=== PATIENT | male | born 1940 | race Caucasian/White ===

== ENCOUNTER 2016-11-15 17:23 | Observation (INO) | payer MEDICARE, MEDICAID ==
[~2016-11-15] VITALS: Ht 157.5 cm; Wt 83.6 kg
[~2016-11-15 17:23] MED LIST: Aspirin PO; BRIN8DRO BOTHEYE; FLUT1DIS3 ORI; FURO40TA5 PO; LISI10TA5 PO; RIVA20TA PO; TRAV2.5D EACHEYE
[2016-11-15] MEDS ORDERED: NITROGLYCERIN OINT 1GM/INCH UDPKT TD ONE (17:45)
[2016-11-15 18:10] LABS: BASOPHILS % 0.4 % (0.0-2.0); EOSINOPHILS % 2.8 % (0.0-5.0); HEMATOCRIT. 37.9 % (42.0-52.0); HEMOGLOBIN. 12.6 g/dL (14.0-18.0); LYMPHOCYTES % 24.7 % (20.0-50.0); MEAN CORPUSCULAR HEMOGLOBIN 32.1 pg (28.0-32.0); MEAN CORPUSCULAR HGB CONC 33.2 g/dL (31.0-37.0); MEAN CORPUSCULAR VOLUME 96.7 fL (80.0-94.0); MONOCYTES % 9.5 % (2.0-8.0); NEUTROPHILS % 62.6 % (40.0-76.0); PLATELET 109 x1000/uL (130-400); RED BLOOD CELL COUNT 3.93 mill/uL (4.7-6.1); RED CELL DISTRIBUTION WIDTH 13.4 % (11.6-14.6); WHITE BLOOD COUNT 6.9 x1000/uL (4.5-11.0)
[2016-11-15 18:17] LABS: INR 1.5; PROTHROMBIN TIME 15.1 sec
[2016-11-15 18:24] LABS: ALANINE AMINOTRANSFERASE 21 IU/L (13-61); ALBUMIN 3.8 g/dL (3.4-5.0); ANION GAP 12; CALCIUM 9.1 mg/dL (8.5-10.1); CARBON DIOXIDE 28 mEq/L (21-32); CHLORIDE 107 mEq/L (98-107); INDEX HEMOLYSI 1 (1-3); INDEX ICTERIC 1 (1-4); INDEX LIPEMIC 1 (1-3); LIPASE 613 IU/L (73-393); UREA NITROGEN BLOOD 24 mg/dL (7-21); eGFR > 60 mL/min (>60)
[2016-11-15 18:26] LABS: NT PRO B-TYPE NATRIURETIC PEP 1101 pg/mL (5-125); TROPONIN I 0.02 ng/mL (0.00-0.04)
[2016-11-15 22:35] VITALS: BP 153/86
[2016-11-16] VITALS: BP 153/86
[2016-11-16] MEDS ORDERED: DEXTROSE 50% WATER 50ML SYRINGE IV PRN (00:45)
[2016-11-16] MEDS ORDERED: MORPHINE SULFATE 2 MG/ML CPJ (NOT FOR IM USE) IV PRN (00:45)
[2016-11-16] MEDS ORDERED: SITA100T6 PO (01:00)
[2016-11-16] MEDS ORDERED: INSU3INS6 SUBCUT (01:00)
[2016-11-16] MEDS ORDERED: METF750T2 PO (01:00)
[2016-11-16] MEDS ORDERED: CARV12.545 PO (01:00)
[2016-11-16] MEDS ORDERED: TAMS0.4C31 PO (01:00)
[2016-11-16] MEDS ORDERED: DIGO125T82 PO (01:00)
[2016-11-16] MEDS ORDERED: SIMV40TA5 PO (01:00)
[2016-11-16] MEDS ORDERED: WARF2.5T47 PO (01:00)
[2016-11-16 04:00] VITALS: BP 111/63
[2016-11-16] MEDS: BLOOD SUGAR DIAGNOSTIC STRIP TEST SCH ×4 (07:22→20:51)
[2016-11-16] MEDS: INSULIN LISPRO 100 UNITS/ML SUBCUT SCH ×4 (07:22→20:51)
[2016-11-16 08:00] VITALS: BP 114/65
[2016-11-16] MEDS: ENOXAPARIN 40MG/0.4ML SYR SUBCUT SCH (09:00)
[2016-11-16 09:18] LABS: ANION GAP 10; CALCIUM 8.7 mg/dL (8.5-10.1); CARBON DIOXIDE 29 mEq/L (21-32); CHLORIDE 108 mEq/L (98-107); HDL CHOLESTEROL 35 mg/dL (40-59); INDEX HEMOLYSI 1 (1-3); INDEX ICTERIC 1 (1-4); INDEX LIPEMIC 1 (1-3); LDL CHOLESTEROL 50 mg/dL (5-100); TRIGLYCERIDE 71 mg/dL (0-150); TROPONIN I 0.02 ng/mL (0.00-0.04); UREA NITROGEN BLOOD 24 mg/dL (7-21); eGFR > 60 mL/min (>60)
[2016-11-16] MEDS: PANTOPRAZOLE 40MG DR TABLET PO SCH (09:18)
[2016-11-16] MEDS: FUROSEMIDE 40MG/4ML VIAL IVP SCH (09:18)
[2016-11-16] MEDS: CARVEDILOL 6.25 MG TABLET PO SCH ×2 (09:19→20:51)
[2016-11-16] MEDS: TIMOLOL MALEATE 0.5% OPHTH DROPS 5ML OP SCH (09:20)
[2016-11-16] MEDS: BRIMONIDINE 0.2% OPHTH DROPS 5ML BOTHEYE SCH (09:20)
[2016-11-16 12:00] VITALS: BP 122/63
[2016-11-16 16:00] VITALS: BP 148/84
[2016-11-16] MEDS ORDERED: WARFARIN SODIUM 2.5MG TABLET PO SCH (18:00)
[2016-11-16 20:00] VITALS: BP 151/85
[2016-11-16] MEDS ORDERED: ATORVASTATIN CALCIUM 40MG TABLET PO SCH (21:00)
[2016-11-16] MEDS ORDERED: LATANOPROST 0.005% OPHTH DROPS 2.5ML OP SCH (21:00)
[2016-11-17] VITALS: BP 117/69
[2016-11-17 04:00] VITALS: BP 122/63
[2016-11-17 06:22] LABS: D-DIMER 0.46 mg/L FEU (<0.50); INR 1.5; PROTHROMBIN TIME 15.2 sec
[2016-11-17 06:39] LABS: BASOPHILS % 0.5 % (0.0-2.0); EOSINOPHILS % 3.1 % (0.0-5.0); HEMATOCRIT. 38.2 % (42.0-52.0); HEMOGLOBIN. 12.8 g/dL (14.0-18.0); LYMPHOCYTES % 29.9 % (20.0-50.0); MEAN CORPUSCULAR HEMOGLOBIN 32.3 pg (28.0-32.0); MEAN CORPUSCULAR HGB CONC 33.6 g/dL (31.0-37.0); MEAN CORPUSCULAR VOLUME 96.4 fL (80.0-94.0); MEAN PLATELET VOLUME 9.5 fl (7.4-10.4); MONOCYTES % 10.8 % (2.0-8.0); NEUTROPHILS % 55.7 % (40.0-76.0); PLATELET 110 x1000/uL (130-400); RED BLOOD CELL COUNT 3.96 mill/uL (4.7-6.1); RED CELL DISTRIBUTION WIDTH 13.4 % (11.6-14.6); WHITE BLOOD COUNT 6.6 x1000/uL (4.5-11.0)
[2016-11-17] MEDS: BLOOD SUGAR DIAGNOSTIC STRIP TEST SCH ×2 (06:42→12:56)
[2016-11-17 07:01] LABS: ALANINE AMINOTRANSFERASE 21 IU/L (13-61); ALBUMIN 3.4 g/dL (3.4-5.0); ANION GAP 12; CALCIUM 9.1 mg/dL (8.5-10.1); CARBON DIOXIDE 29 mEq/L (21-32); CHLORIDE 105 mEq/L (98-107); INDEX HEMOLYSI 2 (1-3); INDEX ICTERIC 1 (1-4); INDEX LIPEMIC 1 (1-3); LDL CHOLESTEROL 68 mg/dL (5-100); MAGNESIUM 2.1 mg/dL (1.8-2.4); TRIGLYCERIDE 81 mg/dL (0-150); UREA NITROGEN BLOOD 23 mg/dL (7-21); eGFR > 60 mL/min (>60)
[2016-11-17 07:02] LABS: HDL CHOLESTEROL 36 mg/dL (40-59); TROPONIN I 0.02 ng/mL (0.00-0.04)
[2016-11-17 08:00] VITALS: BP 114/75
[2016-11-17] MEDS: ENOXAPARIN 40MG/0.4ML SYR SUBCUT SCH (08:29)
[2016-11-17] MEDS: FUROSEMIDE 40MG/4ML VIAL IVP SCH (08:29)
[2016-11-17] MEDS: PANTOPRAZOLE 40MG DR TABLET PO SCH (08:29)
[2016-11-17] MEDS: CARVEDILOL 6.25 MG TABLET PO SCH (08:32)
[2016-11-17] MEDS: TIMOLOL MALEATE 0.5% OPHTH DROPS 5ML OP SCH (08:32)
[2016-11-17] MEDS: BRIMONIDINE 0.2% OPHTH DROPS 5ML BOTHEYE SCH (08:32)
[2016-11-17] MEDS: INSULIN LISPRO 100 UNITS/ML SUBCUT SCH ×2 (08:34→13:38)
[2016-11-17 12:00] VITALS: BP 103/68
[2016-11-17 13:10] VITALS: BP 103/68
== END 2016-11-17 14:55 | disposition home or self-care (01) ==
LOC: ER 17:24 → 7WST 19:01 → INTOOBSV 19:01
PROVIDERS: ADMIT Internal Medicine; ATTEND Internal Medicine
DX: I11.0 Hypertensive heart disease with heart failure (principal); I50.9 Heart failure, unspecified; E11.9 Type 2 diabetes mellitus without complications; E78.00 Pure hypercholesterolemia, unspecified; E78.5 Hyperlipidemia, unspecified; I25.10 Atherosclerotic heart disease of native coronary artery without angina pectoris; I34.0 Nonrheumatic mitral (valve) insufficiency; I48.2 Chronic atrial fibrillation; I42.0 Dilated cardiomyopathy; K21.9 Gastro-esophageal reflux disease without esophagitis; N28.9 Disorder of kidney and ureter, unspecified; J44.9 Chronic obstructive pulmonary disease, unspecified; N40.0 Benign prostatic hyperplasia without lower urinary tract symptoms; Z87.891 Personal history of nicotine dependence; Z95.1 Presence of aortocoronary bypass graft; Z79.01 Long term (current) use of anticoagulants; Z99.81 Dependence on supplemental oxygen; Z95.0 Presence of cardiac pacemaker
CPT/HCPCS: 36415; 71010; 80048; 80053; 80061; 82962; 83690; 83735; 83880; 84443; 84484; 85025; 85379; 85610; 93005; 93970; 96372; 96374; 96376; 99285; G0378; J1650; J1815; J1940

== ENCOUNTER 2018-07-23 17:43 | Inpatient (IN) | payer MEDICARE, MEDICAID ==
[~2018-07-23] VITALS: Ht 167.6 cm; Wt 84.4 kg
[~2018-07-23 17:43] MED LIST changes: +CARV12.545 PO; +DIGO125T82 PO; +INSU3INS6 SUBCUT; +METF750T2 PO; +SIMV40TA5 PO; +SITA100T11 PO; +TAMS0.4C31 PO; +WARF2.5T47 PO
[2018-07-23] MEDS ORDERED: IPRATROPIUM/ALBUTEROL 0.5-3(2.5)MG/3ML NEB HHN ONE (18:30)
[2018-07-23 19:25] LABS: BASOPHILS % 0.5 % (0.0-2.0); EOSINOPHILS % 1.5 % (0.0-5.0); HEMATOCRIT. 34.6 % (42.0-52.0); HEMOGLOBIN. 11.6 g/dL (14.0-18.0); LYMPHOCYTES % 21.2 % (20.0-50.0); MEAN CORPUSCULAR HEMOGLOBIN 32.9 pg (28.0-32.0); MEAN CORPUSCULAR VOLUME 98.1 fL (80.0-94.0); MEAN PLATELET VOLUME 9.4 fl (7.4-10.4); NEUTROPHILS % 64.8 % (40.0-76.0); PLATELET 154 x1000/uL (130-400); RED BLOOD CELL COUNT 3.52 mill/uL (4.7-6.1); RED CELL DISTRIBUTION WIDTH 13.5 % (11.6-14.6)
[2018-07-23 19:27] LABS: CHLORIDE 107 mEq/L (98-107)
[2018-07-23 19:28] LABS: PROTHROMBIN TIME 29.9 sec (9.1-11.1)
[2018-07-23] MEDS ORDERED: FUROSEMIDE 40MG/4ML VIAL IVP NR (19:45)
[2018-07-23] MEDS ORDERED: ASPIRIN 81MG TABLET PO NR (19:45)
[2018-07-23] MEDS ORDERED: CLONIDINE 0.1MG TABLET PO PRN (21:00)
[2018-07-23] MEDS ORDERED: INSULIN LISPRO 100 UNITS/ML SUBCUT SCH (21:00)
[2018-07-23] MEDS ORDERED: LORAZEPAM 1MG TABLET PO PRN (21:00)
[2018-07-23] MEDS ORDERED: ACETAMINOPHEN 325MG TABLET PO PRN (21:00)
[2018-07-23] MEDS ORDERED: MAGNESIUM/ALUMINUM HYDROXIDE/SIMETHICONE 30ML UDC PO PRN (21:00)
[2018-07-23] MEDS ORDERED: BLOOD SUGAR DIAGNOSTIC STRIP TEST SCH (21:00)
[2018-07-23] MEDS ORDERED: GUAIFENESIN 200MG/10ML SUGAR FREE UDC PO PRN (21:00)
[2018-07-23] MEDS ORDERED: IPRATROPIUM/ALBUTEROL 0.5-3(2.5)MG/3ML NEB INH PRN (21:00)
[2018-07-23] MEDS ORDERED: LISINOPRIL 20MG TABLET PO SCH (21:00)
[2018-07-23] MEDS ORDERED: DEXTROSE 50% WATER 50ML SYRINGE IV PRN (21:00)
[2018-07-23] MEDS ORDERED: FAMOTIDINE 20MG TABLET PO SCH (21:00)
[2018-07-23] MEDS ORDERED: ONDANSETRON HCL 4MG/2ML INJ IV PRN (21:00)
[2018-07-23] MEDS ORDERED: FUROSEMIDE 40MG/4ML VIAL IVP SCH (21:00)
[2018-07-23] MEDS ORDERED: SPIRONOLACTONE 25MG TABLET PO SCH (21:00)
[2018-07-23] MEDS ORDERED: ZOLPIDEM TARTRATE 5MG TABLET PO PRN ×2 (21:00→23:45)
[2018-07-23] MEDS ORDERED: DOCUSATE SODIUM 100MG CAPSULE PO PRN (21:00)
[2018-07-23] MEDS ORDERED: GUAIFENESIN/DM 600MG/30MG ER TAB 12HR PO SCH (21:00)
[2018-07-23] MEDS ORDERED: TRAMADOL 50MG TABLET PO PRN (21:00)
[2018-07-23] MEDS ORDERED: NITROGLYCERIN 0.4MG TABLET SL SL PRN (21:00)
[2018-07-23] MEDS ORDERED: INSULIN GLARGINE UD 100 UNITS/ML SYR SUBCUT SCH (22:00)
[2018-07-23 22:48] LABS: FOLIC ACID (FOLATE) SERUM 12.6 ng/mL (>5.38)
[2018-07-23 23:40] VITALS: BP 155/77
[2018-07-24] VITALS: BP 154/77
[2018-07-24] MEDS ORDERED: INSULIN GLARGINE UD 100 UNITS/ML SYR SUBCUT NR (02:00)
[2018-07-24 03:00] LABS: DIGOXIN 0.6 ng/mL (0.9-2.0)
[2018-07-24 04:00] VITALS: BP 138/73
[2018-07-24] MEDS: INSULIN LISPRO 100 UNITS/ML SUBCUT SCH ×4 (06:00→20:38)
[2018-07-24] MEDS ORDERED: CARVEDILOL 3.125 MG TABLET PO SCH (06:00)
[2018-07-24] MEDS: BLOOD SUGAR DIAGNOSTIC STRIP TEST SCH ×4 (06:00→20:38)
[2018-07-24] MEDS: CARVEDILOL 6.25 MG TABLET PO SCH ×2 (06:04→17:44)
[2018-07-24 08:00] VITALS: BP 143/90
[2018-07-24] MEDS ORDERED: ASPIRIN 325MG EC TABLET PO SCH (09:00)
[2018-07-24] MEDS ORDERED: TAMSULOSIN HCL 0.4MG SR CAPSULE PO SCH (09:00)
[2018-07-24 09:27] LABS: PROTHROMBIN TIME 29.2 sec (9.1-11.1)
[2018-07-24] MEDS: FUROSEMIDE 40MG/4ML VIAL IVP SCH ×2 (09:48→20:26)
[2018-07-24] MEDS: SPIRONOLACTONE 25MG TABLET PO SCH ×2 (09:49→20:36)
[2018-07-24] MEDS: ASPIRIN 325MG EC TABLET PO SCH (09:49)
[2018-07-24] MEDS: FAMOTIDINE 20MG TABLET PO SCH ×2 (09:50→20:27)
[2018-07-24] MEDS: GUAIFENESIN/DM 600MG/30MG ER TAB 12HR PO SCH ×2 (09:50→20:27)
[2018-07-24] MEDS: TAMSULOSIN HCL 0.4MG SR CAPSULE PO SCH (09:50)
[2018-07-24] MEDS: LISINOPRIL 20MG TABLET PO SCH ×2 (09:51→20:35)
[2018-07-24 12:00] VITALS: BP 128/84
[2018-07-24] MEDS ORDERED: TRAMADOL 50MG TABLET PO PRN (12:45)
[2018-07-24] MEDS ORDERED: LORAZEPAM 1MG TABLET PO PRN (12:45)
[2018-07-24] MEDS: DIGOXIN 125MCG TABLET PO SCH (17:44)
[2018-07-24] MEDS ORDERED: DIGOXIN 125MCG TABLET PO SCH (18:00)
[2018-07-24] MEDS ORDERED: WARFARIN SODIUM 2.5MG TABLET PO SCH (18:00)
[2018-07-24 20:00] VITALS: BP 109/54
[2018-07-24] MEDS: ATORVASTATIN CALCIUM 10MG TABLET PO SCH (20:46)
[2018-07-24] MEDS ORDERED: ATORVASTATIN CALCIUM 10MG TABLET PO SCH (21:00)
[2018-07-24] MEDS: INSULIN GLARGINE UD 100 UNITS/ML SYR SUBCUT SCH (21:58)
[2018-07-25] VITALS: BP 108/59
[2018-07-25 04:00] VITALS: BP 114/48
[2018-07-25] MEDS: CARVEDILOL 6.25 MG TABLET PO SCH ×2 (05:06→18:47)
[2018-07-25] MEDS: INSULIN LISPRO 100 UNITS/ML SUBCUT SCH ×4 (05:53→21:00)
[2018-07-25] MEDS: BLOOD SUGAR DIAGNOSTIC STRIP TEST SCH ×4 (05:53→21:26)
[2018-07-25 07:29] LABS: BASOPHILS % 0.4 % (0.0-2.0); HEMATOCRIT. 36.3 % (42.0-52.0); HEMOGLOBIN. 11.9 g/dL (14.0-18.0); LYMPHOCYTES % 23.7 % (20.0-50.0); MEAN CORPUSCULAR HEMOGLOBIN 32.3 pg (28.0-32.0); MEAN CORPUSCULAR VOLUME 98.3 fL (80.0-94.0); MEAN PLATELET VOLUME 9.3 fl (7.4-10.4); MONOCYTES % 12.5 % (2.0-8.0); NEUTROPHILS % 61.4 % (40.0-76.0); PLATELET 163 x1000/uL (130-400); RED BLOOD CELL COUNT 3.69 mill/uL (4.7-6.1); RED CELL DISTRIBUTION WIDTH 13.6 % (11.6-14.6)
[2018-07-25 07:36] LABS: D-DIMER 0.4 mg/L FEU (<0.50); INR 2.9; PROTHROMBIN TIME 28.4 sec (9.1-11.1)
[2018-07-25 08:00] VITALS: BP 134/78
[2018-07-25] MEDS: FUROSEMIDE 40MG/4ML VIAL IVP SCH ×2 (08:34→21:42)
[2018-07-25] MEDS: GUAIFENESIN/DM 600MG/30MG ER TAB 12HR PO SCH ×2 (08:34→21:37)
[2018-07-25] MEDS: SPIRONOLACTONE 25MG TABLET PO SCH ×2 (08:35→21:38)
[2018-07-25] MEDS: FAMOTIDINE 20MG TABLET PO SCH ×2 (08:35→21:38)
[2018-07-25] MEDS: TAMSULOSIN HCL 0.4MG SR CAPSULE PO SCH (08:35)
[2018-07-25] MEDS: ASPIRIN 325MG EC TABLET PO SCH (08:36)
[2018-07-25] MEDS: LISINOPRIL 20MG TABLET PO SCH ×2 (08:36→21:37)
[2018-07-25 09:56] LABS: CHLORIDE 106 mEq/L (98-107)
[2018-07-25 10:25] LABS: CREATINE KINASE 109 IU/L (39-308)
[2018-07-25 10:31] LABS: CREATINE KINASE MB FRACTION 1.5 ng/mL (0.5-3.6)
[2018-07-25 10:40] LABS: DIGOXIN 0.8 ng/mL (0.9-2.0)
[2018-07-25 12:00] VITALS: BP 131/76
[2018-07-25] MEDS ORDERED: POTASSIUM CHLORIDE 20MEQ/PACKET PO NR ×2 (12:00→18:45)
[2018-07-25] MEDS: AMLODIPINE 2.5MG TABLET PO SCH ×2 (15:00→21:00)
[2018-07-25 16:00] VITALS: BP 136/68
[2018-07-25] MEDS ORDERED: MAGNESIUM 2 G PREMIX 50 ML IV SCH (16:00)
[2018-07-25] MEDS ORDERED: WARFARIN SODIUM 1MG TABLET PO NR (18:00)
[2018-07-25] MEDS ORDERED: WARFARIN SODIUM 2MG TABLET PO NR (18:00)
[2018-07-25] MEDS: DIGOXIN 125MCG TABLET PO SCH (18:48)
[2018-07-25 20:00] VITALS: BP 120/70
[2018-07-25] MEDS: ATORVASTATIN CALCIUM 10MG TABLET PO SCH (21:38)
[2018-07-25] MEDS: INSULIN GLARGINE UD 100 UNITS/ML SYR SUBCUT SCH (21:49)
[2018-07-26] VITALS: BP 130/65
[2018-07-26 04:00] VITALS: BP 120/70
[2018-07-26] MEDS: BLOOD SUGAR DIAGNOSTIC STRIP TEST SCH (05:54)
[2018-07-26 05:56] VITALS: BP 108/60
[2018-07-26] MEDS: CARVEDILOL 6.25 MG TABLET PO SCH (05:57)
[2018-07-26] MEDS: INSULIN LISPRO 100 UNITS/ML SUBCUT SCH (06:28)
[2018-07-26 06:31] LABS: INR 2.2; PROTHROMBIN TIME 22.3 sec (9.1-11.1)
[2018-07-26 06:36] LABS: BASOPHILS % 0.5 % (0.0-2.0); EOSINOPHILS % 2.2 % (0.0-5.0); HEMATOCRIT. 37.4 % (42.0-52.0); HEMOGLOBIN. 12.6 g/dL (14.0-18.0); LYMPHOCYTES % 27.4 % (20.0-50.0); MEAN CORPUSCULAR HEMOGLOBIN 32.9 pg (28.0-32.0); MEAN CORPUSCULAR VOLUME 97.7 fL (80.0-94.0); MEAN PLATELET VOLUME 9.2 fl (7.4-10.4); MONOCYTES % 12.9 % (2.0-8.0); PLATELET 167 x1000/uL (130-400); RED BLOOD CELL COUNT 3.82 mill/uL (4.7-6.1); RED CELL DISTRIBUTION WIDTH 13.9 % (11.6-14.6)
== END 2018-07-26 12:00 | disposition home or self-care (01) | DRG 291 ==
LOC: ER 17:43 → 8WST 20:19 → EDBEDREQ 20:31 → EDBEDREQTM 20:31 → SUPCPDRO 20:49 → ENRESERV 21:29 → ER 23:34 → 8WST 07-24 01:55
PROVIDERS: ADMIT Internal Medicine; ATTEND Internal Medicine
DX: I11.0 Hypertensive heart disease with heart failure (principal); J96.00 Acute respiratory failure, unspecified whether with hypoxia or hypercapnia; E44.1 Mild protein-calorie malnutrition; I50.43 Acute on chronic combined systolic (congestive) and diastolic (congestive) heart failure; I42.0 Dilated cardiomyopathy; D63.8 Anemia in other chronic diseases classified elsewhere; E11.65 Type 2 diabetes mellitus with hyperglycemia; E78.00 Pure hypercholesterolemia, unspecified; G47.00 Insomnia, unspecified; I25.10 Atherosclerotic heart disease of native coronary artery without angina pectoris; I27.20 Pulmonary hypertension, unspecified; I34.0 Nonrheumatic mitral (valve) insufficiency; I48.2 Chronic atrial fibrillation; I49.5 Sick sinus syndrome; J44.9 Chronic obstructive pulmonary disease, unspecified; N40.0 Benign prostatic hyperplasia without lower urinary tract symptoms; Z79.01 Long term (current) use of anticoagulants; Z79.899 Other long term (current) drug therapy; Z87.891 Personal history of nicotine dependence; Z95.1 Presence of aortocoronary bypass graft; Z95.810 Presence of automatic (implantable) cardiac defibrillator; Z99.81 Dependence on supplemental oxygen; Z68.30 Body mass index [BMI] 30.0-30.9, adult
CPT/HCPCS: 36415; 71045; 80048; 80061; 80162; 82550; 82553; 82607; 82746; 82962; 83036; 83540; 83550; 83605; 83735; 83880; 84443; 84484; 85379; 93005; 93306; 93970; 94640; 96374; 97162; 97166; 99291; C1893; J1815; J1940; J3475; J7040; J7620

== ENCOUNTER 2018-08-16 14:49 | Emergency (ER) | payer OTHER, MEDICAID ==
[~2018-08-16] VITALS: Ht 167.6 cm; Wt 91.0 kg
[2018-08-16 16:50] VITALS: BP 118/85
[2018-08-16 17:22] LABS: BASOPHILS % 0.6 % (0.0-2.0); EOSINOPHILS % 0.9 % (0.0-5.0); HEMATOCRIT. 39.2 % (42.0-52.0); HEMOGLOBIN. 12.8 g/dL (14.0-18.0); LYMPHOCYTES % 24.7 % (20.0-50.0); MEAN CORPUSCULAR HEMOGLOBIN 32.1 pg (28.0-32.0); MEAN PLATELET VOLUME 9.6 fl (7.4-10.4); MONOCYTES % 9.6 % (2.0-8.0); NEUTROPHILS % 64.2 % (40.0-76.0); PLATELET 169 x1000/uL (130-400); RED CELL DISTRIBUTION WIDTH 14.2 % (11.6-14.6)
[2018-08-16 17:32] LABS: CHLORIDE 109 mEq/L (98-107)
== END 2018-08-16 18:10 | disposition left against medical advice (07) ==
LOC: ER 14:49
DX: I11.0 Hypertensive heart disease with heart failure (principal); I50.9 Heart failure, unspecified; R06.02 Shortness of breath; E86.0 Dehydration; R79.89 Other specified abnormal findings of blood chemistry; E86.9 Volume depletion, unspecified; D64.9 Anemia, unspecified; I48.91 Unspecified atrial fibrillation; J44.9 Chronic obstructive pulmonary disease, unspecified; I25.10 Atherosclerotic heart disease of native coronary artery without angina pectoris; E11.65 Type 2 diabetes mellitus with hyperglycemia; Z95.1 Presence of aortocoronary bypass graft; Z79.01 Long term (current) use of anticoagulants; Z79.82 Long term (current) use of aspirin; Z99.81 Dependence on supplemental oxygen; Z95.810 Presence of automatic (implantable) cardiac defibrillator
CPT/HCPCS: 36415; 71045; 83880; 84484; 93005; 99284

== ENCOUNTER 2018-08-23 21:37 | Inpatient (IN) | payer OTHER, MEDICAID ==
[~2018-08-23] VITALS: Ht 165.1 cm; Wt 75.5 kg
[2018-08-23] MEDS ORDERED: MORPHINE SULFATE 4 MG/ML CPJ (NOT FOR IM USE) IV STA (22:37)
[2018-08-23] MEDS ORDERED: NITROGLYCERIN OINT 1GM/INCH UDPKT TD ONE (22:45)
[2018-08-23 22:59] LABS: BASOPHILS % 0.3 % (0.0-2.0); HEMATOCRIT. 33.7 % (42.0-52.0); HEMOGLOBIN. 11.1 g/dL (14.0-18.0); LYMPHOCYTES % 9.8 % (20.0-50.0); MEAN CORPUSCULAR HEMOGLOBIN 32.6 pg (28.0-32.0); MEAN CORPUSCULAR VOLUME 98.6 fL (80.0-94.0); MEAN PLATELET VOLUME 10.2 fl (7.4-10.4); NEUTROPHILS % 87.9 % (40.0-76.0); PLATELET 115 x1000/uL (130-400); RED BLOOD CELL COUNT 3.41 mill/uL (4.7-6.1); RED CELL DISTRIBUTION WIDTH 13.9 % (11.6-14.6)
[2018-08-23 23:02] LABS: CHLORIDE 109 mEq/L (98-107)
[2018-08-24] VITALS (8 sets, daily range): BP systolic 118–157; BP diastolic 63–87
[2018-08-24] MEDS ORDERED: ASPIRIN 325MG EC TABLET PO ONE
[2018-08-24] MEDS ORDERED: DEXTROSE 50% WATER 50ML SYRINGE IV PRN (03:15)
[2018-08-24] MEDS: BLOOD SUGAR DIAGNOSTIC STRIP TEST SCH ×4 (07:31→20:59)
[2018-08-24] MEDS: IPRATROPIUM/ALBUTEROL 0.5-3(2.5)MG/3ML NEB HHN SCH ×4 (07:51→21:59)
[2018-08-24] MEDS: INSULIN LISPRO 100 UNITS/ML SUBCUT SCH ×4 (08:33→20:58)
[2018-08-24] MEDS: CARVEDILOL 12.5MG TABLET PO SCH ×2 (08:35→20:59)
[2018-08-24] MEDS: ASPIRIN 81MG TABLET PO SCH (08:35)
[2018-08-24] MEDS: LINAGLIPTIN 5MG TABLET PO SCH (08:35)
[2018-08-24] MEDS: LISINOPRIL 10MG TABLET PO SCH ×2 (08:35→20:59)
[2018-08-24] MEDS: TAMSULOSIN HCL 0.4MG SR CAPSULE PO SCH (08:35)
[2018-08-24] MEDS: FUROSEMIDE 40MG TABLET PO SCH (08:35)
[2018-08-24] MEDS ORDERED: MEDICATION NOT ON FORMULARY EA (Sitagliptin Phosphate (Januvia) 100 MG) PO SCH (09:00)
[2018-08-24] MEDS ORDERED: MEDICATION NOT ON FORMULARY EA (Lisinopril 10 MG) PO SCH (09:00)
[2018-08-24] MEDS ORDERED: MEDICATION NOT ON FORMULARY EA (Furosemide 40 MG) PO SCH (09:00)
[2018-08-24] MEDS ORDERED: METFORMIN HCL 750 MG PO SCH (09:00)
[2018-08-24] MEDS ORDERED: MEDICATION NOT ON FORMULARY EA (Brinzolamide/Brimonid Tart (Simbrinza 1%-0.2% Eye Drops) BOTHEYE SCH (09:00)
[2018-08-24] MEDS: COMBIGAN OPHTH SOLN EACHEYE SCH ×2 (11:10→18:11)
[2018-08-24] MEDS ORDERED: MEDICATION NOT ON FORMULARY EA (Travoprost (Travatan Z) 1 DROP) EACHEYE SCH (17:00)
[2018-08-24] MEDS ORDERED: LATANOPROST 0.005% OPHTH DROPS 2.5ML EACHEYE SCH (17:00)
[2018-08-24] MEDS ORDERED: RIVAROXABAN 20 MG TABLET PO SCH (17:00)
[2018-08-24] MEDS ORDERED: MEDICATION NOT ON FORMULARY EA (Insulin Glargine,Hum.rec.anlog (Lantus Solostar) 16 UNIT SUBCUT SCH (17:00)
[2018-08-24] MEDS ORDERED: LORAZEPAM 0.5MG TABLET PO PRN (18:15)
[2018-08-24 18:39] LABS: BASOPHILS % 0.3 % (0.0-2.0); EOSINOPHILS % 0.2 % (0.0-5.0); HEMATOCRIT. 35.6 % (42.0-52.0); HEMOGLOBIN. 11.8 g/dL (14.0-18.0); LYMPHOCYTES % 15.6 % (20.0-50.0); MEAN CORPUSCULAR HEMOGLOBIN 32.6 pg (28.0-32.0); MONOCYTES % 8.6 % (2.0-8.0); NEUTROPHILS % 75.3 % (40.0-76.0); PLATELET 124 x1000/uL (130-400); RED BLOOD CELL COUNT 3.63 mill/uL (4.7-6.1); RED CELL DISTRIBUTION WIDTH 14.3 % (11.6-14.6)
[2018-08-24 18:40] LABS: CHLORIDE 106 mEq/L (98-107)
[2018-08-24 18:48] LABS: HDL CHOLESTEROL 35 mg/dL (40-59); LDL CHOLESTEROL 52 mg/dL (5-100)
[2018-08-24 18:55] LABS: CREATINE KINASE MB FRACTION 39.2 ng/mL (0.5-3.6)
[2018-08-24] MEDS: ATORVASTATIN CALCIUM 20MG TABLET PO SCH (20:59)
[2018-08-24] MEDS ORDERED: MEDICATION NOT ON FORMULARY EA (Simvastatin 40 MG) PO SCH (21:00)
[2018-08-24] MEDS: INSULIN GLARGINE UD 100 UNITS/ML SYR SUBCUT SCH (22:08)
[2018-08-24 23:16] LABS: CREATINE KINASE MB FRACTION 31.4 ng/mL (0.5-3.6)
[2018-08-25] VITALS: BP 124/64
[2018-08-25] MEDS: IPRATROPIUM/ALBUTEROL 0.5-3(2.5)MG/3ML NEB HHN SCH ×6 (01:17→21:12)
[2018-08-25 04:00] VITALS: BP 120/60
[2018-08-25 04:44] LABS: *AMPHETAMINES SCREEN URINE NEGATIVE (NEGATIVE); *BARBITURATES SCREEN URINE NEGATIVE (NEGATIVE); *BENZODIAZEPINES SCREEN URINE NEGATIVE (NEGATIVE); *COCAINE SCREEN URINE NEGATIVE (NEGATIVE); METHADONE URINE SCREEN NEGATIVE (NEGATIVE); OPIATES URINE SCREEN PRESUMTIVE POSITIVE (NEGATIVE); PHENCYCLIDINE URINE SCREEN NEGATIVE (NEGATIVE)
[2018-08-25 04:45] LABS: CANNABINOID URINE SCREEN NEGATIVE (NEGATIVE)
[2018-08-25] MEDS: BLOOD SUGAR DIAGNOSTIC STRIP TEST SCH ×4 (06:24→21:00)
[2018-08-25] MEDS: INSULIN LISPRO 100 UNITS/ML SUBCUT SCH ×4 (07:24→21:00)
[2018-08-25 08:00] VITALS: BP 139/76
[2018-08-25] MEDS: TAMSULOSIN HCL 0.4MG SR CAPSULE PO SCH (09:00)
[2018-08-25 09:39] LABS: BASOPHILS % 0.2 % (0.0-2.0); EOSINOPHILS % 0.6 % (0.0-5.0); HEMATOCRIT. 35.3 % (42.0-52.0); HEMOGLOBIN. 11.8 g/dL (14.0-18.0); LYMPHOCYTES % 13.6 % (20.0-50.0); MEAN CORPUSCULAR HEMOGLOBIN 32.7 pg (28.0-32.0); MEAN CORPUSCULAR VOLUME 97.9 fL (80.0-94.0); MEAN PLATELET VOLUME 9.5 fl (7.4-10.4); MONOCYTES % 7.7 % (2.0-8.0); NEUTROPHILS % 77.9 % (40.0-76.0); PLATELET 121 x1000/uL (130-400); RED BLOOD CELL COUNT 3.61 mill/uL (4.7-6.1); RED CELL DISTRIBUTION WIDTH 14.2 % (11.6-14.6)
[2018-08-25] MEDS: LISINOPRIL 10MG TABLET PO SCH ×2 (09:48→21:00)
[2018-08-25] MEDS: FUROSEMIDE 40MG TABLET PO SCH (09:48)
[2018-08-25] MEDS: LINAGLIPTIN 5MG TABLET PO SCH (09:48)
[2018-08-25] MEDS: CARVEDILOL 12.5MG TABLET PO SCH ×2 (09:48→21:00)
[2018-08-25] MEDS: ASPIRIN 81MG TABLET PO SCH (09:49)
[2018-08-25] MEDS: COMBIGAN OPHTH SOLN EACHEYE SCH ×2 (09:50→18:23)
[2018-08-25 09:55] LABS: CHLORIDE 107 mEq/L (98-107)
[2018-08-25 10:09] LABS: CREATINE KINASE 306 IU/L (39-308)
[2018-08-25 10:11] LABS: CREATINE KINASE MB FRACTION 24.6 ng/mL (0.5-3.6)
[2018-08-25 12:00] VITALS: BP 127/71
[2018-08-25 16:00] VITALS: BP 136/85
[2018-08-25 20:00] VITALS: BP 138/71
[2018-08-25] MEDS: ATORVASTATIN CALCIUM 20MG TABLET PO SCH (21:00)
[2018-08-25] MEDS: INSULIN GLARGINE UD 100 UNITS/ML SYR SUBCUT SCH (21:35)
[2018-08-25] MEDS: FUROSEMIDE 40MG/4ML VIAL IVP SCH (23:56)
[2018-08-25] MEDS: LEVOFLOXACIN 500MG PREMIX 100 ML IV SCH (23:57)
[2018-08-26] VITALS: BP 111/72
[2018-08-26] MEDS: IPRATROPIUM/ALBUTEROL 0.5-3(2.5)MG/3ML NEB HHN SCH ×6 (00:14→22:00)
[2018-08-26 04:00] VITALS: BP 112/63
[2018-08-26 06:22] LABS: BASOPHILS % 0.3 % (0.0-2.0); EOSINOPHILS % 0.8 % (0.0-5.0); HEMATOCRIT. 37.9 % (42.0-52.0); HEMOGLOBIN. 12.6 g/dL (14.0-18.0); LYMPHOCYTES % 14.3 % (20.0-50.0); MEAN CORPUSCULAR HEMOGLOBIN 32.5 pg (28.0-32.0); MEAN CORPUSCULAR VOLUME 97.8 fL (80.0-94.0); MEAN PLATELET VOLUME 9.5 fl (7.4-10.4); MONOCYTES % 8.6 % (2.0-8.0); PLATELET 139 x1000/uL (130-400); RED BLOOD CELL COUNT 3.88 mill/uL (4.7-6.1); RED CELL DISTRIBUTION WIDTH 14.2 % (11.6-14.6)
[2018-08-26 06:24] LABS: CHLORIDE 102 mEq/L (98-107)
[2018-08-26] MEDS: BLOOD SUGAR DIAGNOSTIC STRIP TEST SCH ×4 (07:20→21:00)
[2018-08-26 08:00] VITALS: BP 134/72
[2018-08-26] MEDS: INSULIN LISPRO 100 UNITS/ML SUBCUT SCH ×4 (08:13→21:00)
[2018-08-26] MEDS: LINAGLIPTIN 5MG TABLET PO SCH (08:14)
[2018-08-26] MEDS: ASPIRIN 81MG TABLET PO SCH (08:15)
[2018-08-26] MEDS: TAMSULOSIN HCL 0.4MG SR CAPSULE PO SCH (08:15)
[2018-08-26] MEDS: CARVEDILOL 12.5MG TABLET PO SCH ×2 (08:15→21:00)
[2018-08-26] MEDS: LISINOPRIL 10MG TABLET PO SCH ×2 (08:15→21:00)
[2018-08-26] MEDS: COMBIGAN OPHTH SOLN EACHEYE SCH ×2 (08:21→17:33)
[2018-08-26] MEDS: FUROSEMIDE 40MG/4ML VIAL IVP SCH (08:33)
[2018-08-26 09:40] LABS: INR 1.6; PROTHROMBIN TIME 16.1 sec (9.1-11.1)
[2018-08-26 11:52] VITALS: BP 113/56
[2018-08-26 15:40] VITALS: BP 91/51
[2018-08-26 20:31] VITALS: BP 107/61
[2018-08-26] MEDS: ATORVASTATIN CALCIUM 20MG TABLET PO SCH (21:00)
[2018-08-26] MEDS: INSULIN GLARGINE UD 100 UNITS/ML SYR SUBCUT SCH (21:32)
[2018-08-26] MEDS: LEVOFLOXACIN 500MG PREMIX 100 ML IV SCH (23:40)
[2018-08-27] VITALS (11 sets, daily range): BP systolic 89–143; BP diastolic 44–74
[2018-08-27] MEDS: IPRATROPIUM/ALBUTEROL 0.5-3(2.5)MG/3ML NEB HHN SCH ×6 (02:40→21:27)
[2018-08-27] MEDS: INSULIN LISPRO 100 UNITS/ML SUBCUT SCH ×4 (07:50→21:00)
[2018-08-27 08:40] LABS: HEMATOCRIT. 35.1 % (42.0-52.0); HEMOGLOBIN. 11.8 g/dL (14.0-18.0); MEAN CORPUSCULAR HEMOGLOBIN 32.5 pg (28.0-32.0); MEAN CORPUSCULAR VOLUME 96.8 fL (80.0-94.0); MEAN PLATELET VOLUME 9.2 fl (7.4-10.4); PLATELET 138 x1000/uL (130-400); RED BLOOD CELL COUNT 3.63 mill/uL (4.7-6.1); RED CELL DISTRIBUTION WIDTH 14.2 % (11.6-14.6)
[2018-08-27 08:58] LABS: CHLORIDE 104 mEq/L (98-107)
[2018-08-27] MEDS: COMBIGAN OPHTH SOLN EACHEYE SCH ×2 (09:00→17:00)
[2018-08-27 09:11] LABS: INR 1.5; PROTHROMBIN TIME 14.5 sec (9.1-11.1)
[2018-08-27] MEDS: TAMSULOSIN HCL 0.4MG SR CAPSULE PO SCH (10:02)
[2018-08-27] MEDS: LINAGLIPTIN 5MG TABLET PO SCH (10:02)
[2018-08-27] MEDS: CARVEDILOL 12.5MG TABLET PO SCH ×2 (10:02→21:00)
[2018-08-27] MEDS: ASPIRIN 81MG TABLET PO SCH (10:02)
[2018-08-27] MEDS: LISINOPRIL 10MG TABLET PO SCH ×2 (10:03→21:00)
[2018-08-27] MEDS: BLOOD SUGAR DIAGNOSTIC STRIP TEST SCH ×3 (12:20→21:58)
[2018-08-27 12:22] LABS: PLATELET ESTIMATE NORMAL
[2018-08-27] MEDS ORDERED: FENTANYL CITRATE/PF 50MCG/ML 2ML VIAL ONE (13:54)
[2018-08-27] MEDS ORDERED: MIDAZOLAM HCL 2 MG/2 ML VIAL ONE (13:54)
[2018-08-27] MEDS ORDERED: IODIXANOL 320MG/ML 100 ML BOTTLE IV ONE ×2 (13:55→15:11)
[2018-08-27] MEDS ORDERED: LIDOCAINE HCL 1% 20ML VIAL (Pyxis) INJ ONE (13:55)
[2018-08-27] MEDS ORDERED: HEPARIN SODIUM 1,000 UNIT/1ML VIAL IV ONE (14:45)
[2018-08-27] MEDS ORDERED: IOHEXOL-300 100 ML BOTTLE ONE (15:06)
[2018-08-27] MEDS ORDERED: CLOPIDOGREL 75MG TABLET ONE ×2 (15:42→16:16)
[2018-08-27] MEDS ORDERED: ASPIRIN/SOD BICARB/CITRIC ACID 324MG TAB EFF ONE (15:42)
[2018-08-27] MEDS ORDERED: SODIUM CHLORIDE 0.45% 500 ML IV ONE (15:45)
[2018-08-27] MEDS ORDERED: ATROPINE SULFATE 1MG/10ML SYR IV PRN (15:45)
[2018-08-27] MEDS ORDERED: ONDANSETRON HCL 4MG/2ML INJ IV PRN (15:45)
[2018-08-27] MEDS ORDERED: MORPHINE SULFATE 4 MG/ML CPJ (NOT FOR IM USE) IV PRN (15:45)
[2018-08-27] MEDS ORDERED: CLOPIDOGREL 75MG TABLET PO ONE (15:45)
[2018-08-27] MEDS ORDERED: ACETAMINOPHEN 325MG TABLET PO PRN (15:45)
[2018-08-27] MEDS: ATORVASTATIN CALCIUM 20MG TABLET PO SCH (21:59)
[2018-08-27] MEDS: INSULIN GLARGINE UD 100 UNITS/ML SYR SUBCUT SCH (22:08)
[2018-08-28] VITALS (9 sets, daily range): BP systolic 99–142; BP diastolic 41–86
[2018-08-28] MEDS: LEVOFLOXACIN 500MG PREMIX 100 ML IV SCH (00:16)
[2018-08-28] MEDS: IPRATROPIUM/ALBUTEROL 0.5-3(2.5)MG/3ML NEB HHN SCH ×4 (00:24→13:35)
[2018-08-28] MEDS: BLOOD SUGAR DIAGNOSTIC STRIP TEST SCH ×2 (05:46→12:15)
[2018-08-28] MEDS: INSULIN LISPRO 100 UNITS/ML SUBCUT SCH ×2 (07:20→12:15)
[2018-08-28 07:24] LABS: CHLORIDE 102 mEq/L (98-107)
[2018-08-28 07:25] LABS: BASOPHILS % 0.3 % (0.0-2.0); EOSINOPHILS % 1.6 % (0.0-5.0); HEMOGLOBIN. 11.9 g/dL (14.0-18.0); LYMPHOCYTES % 16.9 % (20.0-50.0); MEAN CORPUSCULAR HEMOGLOBIN 32.4 pg (28.0-32.0); MEAN CORPUSCULAR VOLUME 98.1 fL (80.0-94.0); MEAN PLATELET VOLUME 9.7 fl (7.4-10.4); MONOCYTES % 11.4 % (2.0-8.0); NEUTROPHILS % 69.8 % (40.0-76.0); PLATELET 139 x1000/uL (130-400); RED BLOOD CELL COUNT 3.67 mill/uL (4.7-6.1); RED CELL DISTRIBUTION WIDTH 14.4 % (11.6-14.6)
[2018-08-28] MEDS: COMBIGAN OPHTH SOLN EACHEYE SCH (08:38)
[2018-08-28] MEDS: LISINOPRIL 10MG TABLET PO SCH (08:39)
[2018-08-28] MEDS: TAMSULOSIN HCL 0.4MG SR CAPSULE PO SCH (08:40)
[2018-08-28] MEDS: LINAGLIPTIN 5MG TABLET PO SCH (08:40)
[2018-08-28] MEDS: CARVEDILOL 12.5MG TABLET PO SCH (08:40)
[2018-08-28] MEDS ORDERED: CLOPIDOGREL 75MG TABLET PO SCH (09:00)
[2018-08-28] MEDS ORDERED: ASPIRIN 325MG TABLET PO SCH (09:00)
[2018-08-28 11:24] LABS: BG BASE EXCESS 3.3 mmol/L (-2.0-2.0); BG CARBOXYHEMOGLOBIN 0.3 % (0.5-1.5); BG DEOXYHEMOGLOBIN 4.8 % (0.0-5.0); BG FRACTION INSPIRED OXYGEN 21; BG OXYGEN SATURATION 95.2 % (92.0-98.5); BG OXYHEMOGLOBIN 94.9 % (94.0-97.0); BG PCO2 37.8 mmHg (35.0-45.0); BG PH 7.471 (7.350-7.450); BG PO2 75.7 mmHg (75.0-100.0); BG SAMPLE SITE RIGHT BRACHIAL; BG TOTAL HEMOGLOBIN 12.5 g/dL (12.0-18.0); BG VENT MODE ROOM AIR
[2018-08-29] MEDS ORDERED: LEVOFLOXACIN 500MG TABLET PO SCH
== END 2018-08-28 13:41 | disposition home or self-care (01) | DRG 246 ==
LOC: ER 21:37 → 6WST 08-24 00:02 → ENRESERV 08-24 00:19 → 3WST 08-27 14:31
PROVIDERS: ADMIT Internal Medicine; ATTEND Internal Medicine
PROC: 4A023N7 Measurement of Cardiac Sampling and Pressure, Left Heart, Percutaneous Approach (ICD-10-PCS; principal; 2018-08-27)
PROC: 027035Z Dilation of Coronary Artery, One Artery with Two Drug-eluting Intraluminal Devices, Percutaneous Approach (ICD-10-PCS; 2018-08-27)
PROC: B2111ZZ Fluoroscopy of Multiple Coronary Arteries using Low Osmolar Contrast (ICD-10-PCS; 2018-08-27)
PROC: B2131ZZ Fluoroscopy of Multiple Coronary Artery Bypass Grafts using Low Osmolar Contrast (ICD-10-PCS; 2018-08-27)
DX: I21.4 Non-ST elevation (NSTEMI) myocardial infarction (principal); I50.43 Acute on chronic combined systolic (congestive) and diastolic (congestive) heart failure; K80.20 Calculus of gallbladder without cholecystitis without obstruction; D64.9 Anemia, unspecified; I34.0 Nonrheumatic mitral (valve) insufficiency; R74.0 Nonspecific elevation of levels of transaminase and lactic acid dehydrogenase [LDH]; I25.10 Atherosclerotic heart disease of native coronary artery without angina pectoris; E11.65 Type 2 diabetes mellitus with hyperglycemia; F41.9 Anxiety disorder, unspecified; I11.0 Hypertensive heart disease with heart failure; D69.6 Thrombocytopenia, unspecified; E78.5 Hyperlipidemia, unspecified; I27.20 Pulmonary hypertension, unspecified; I48.2 Chronic atrial fibrillation; J44.9 Chronic obstructive pulmonary disease, unspecified; I25.5 Ischemic cardiomyopathy; Y83.2 Surgical operation with anastomosis, bypass or graft as the cause of abnormal reaction of the patient, or of later complication, without mention of misadventure at the time of the procedure; Y92.89 Other specified places as the place of occurrence of the external cause; Z95.1 Presence of aortocoronary bypass graft; Z79.4 Long term (current) use of insulin; Z79.82 Long term (current) use of aspirin; Z79.01 Long term (current) use of anticoagulants; Z95.810 Presence of automatic (implantable) cardiac defibrillator; Z79.899 Other long term (current) drug therapy
CPT/HCPCS: 36415; 36600; 71045; 76700; 80048; 80061; 80076; 80305; 82375; 82550; 82553; 82805; 82962; 83036; 83735; 83880; 84443; 84484; 85347; 93005; 93306; 93458; 93970; 94640; 96374; 99285; C1769; C1874; C1887; C1893; J1644; J1815; J1940; J1956; J2250; J2270; J3010; J3490; J7040; J7050; J7620; Q9967

== ENCOUNTER 2018-11-28 17:29 | Inpatient (IN) | payer MEDICARE, MEDICAID ==
[~2018-11-28] VITALS: Ht 157.5 cm; Wt 75.7 kg
[~2018-11-28 17:29] MED LIST changes: -Aspirin PO; -RIVA20TA PO; -WARF2.5T47 PO
[2018-11-28] MEDS ORDERED: ASPIRIN 81MG TABLET PO ONE (17:45)
[2018-11-28 18:28] LABS: CHLORIDE 109 mEq/L (98-107)
[2018-11-28 19:00] LABS: BASOPHILS % 0.2 % (0.0-2.0); EOSINOPHILS % 0.1 % (0.0-5.0); HEMATOCRIT. 34.8 % (42.0-52.0); HEMOGLOBIN. 11.5 g/dL (14.0-18.0); LYMPHOCYTES % 8.6 % (20.0-50.0); MEAN CORPUSCULAR HEMOGLOBIN 32.3 pg (28.0-32.0); MEAN CORPUSCULAR VOLUME 97.9 fL (80.0-94.0); MEAN PLATELET VOLUME 9.7 fl (7.4-10.4); MONOCYTES % 6.1 % (2.0-8.0); PLATELET 123 x1000/uL (130-400); RED BLOOD CELL COUNT 3.55 mill/uL (4.7-6.1); RED CELL DISTRIBUTION WIDTH 13.5 % (11.6-14.6)
[2018-11-28] MEDS ORDERED: FUROSEMIDE 20MG/2ML VIAL IVP ONE (19:30)
[2018-11-28 21:40] VITALS: BP 159/88
[2018-11-28 22:00] VITALS: BP 159/68
[2018-11-28] MEDS ORDERED: HYDROCODONE/ACETAMINOPHEN 5/325MG TABLET PO PRN (22:45)
[2018-11-28] MEDS ORDERED: DEXTROSE 50% WATER 50ML SYRINGE IV PRN (22:45)
[2018-11-28] MEDS ORDERED: FURO-151 PO (23:11)
[2018-11-28] MEDS ORDERED: NON FORMULARY PATIENT HOME MED XX SCH (23:30)
[2018-11-29] VITALS: BP 111/64
[2018-11-29] MEDS ORDERED: ATORVASTATIN CALCIUM 40MG TABLET PO SCH
[2018-11-29 04:00] VITALS: BP 123/78
[2018-11-29] MEDS: ALBUTEROL (0.083%) 2.5MG/3ML NEB HHN SCH ×3 (06:00→14:08)
[2018-11-29 06:31] LABS: BASOPHILS % 0.2 % (0.0-2.0); EOSINOPHILS % 0.1 % (0.0-5.0); LYMPHOCYTES % 17.2 % (20.0-50.0); MEAN CORPUSCULAR HEMOGLOBIN 32.5 pg (28.0-32.0); MEAN CORPUSCULAR VOLUME 97.5 fL (80.0-94.0); MEAN PLATELET VOLUME 9.3 fl (7.4-10.4); MONOCYTES % 9.7 % (2.0-8.0); NEUTROPHILS % 72.8 % (40.0-76.0); PLATELET 124 x1000/uL (130-400); RED BLOOD CELL COUNT 3.38 mill/uL (4.7-6.1); RED CELL DISTRIBUTION WIDTH 13.9 % (11.6-14.6)
[2018-11-29 06:59] LABS: CHLORIDE 107 mEq/L (98-107)
[2018-11-29] MEDS ORDERED: NON FORMULARY PATIENT HOME MED XX SCH (07:00)
[2018-11-29] MEDS: BLOOD SUGAR DIAGNOSTIC STRIP TEST SCH ×2 (07:40→13:10)
[2018-11-29 08:00] VITALS: BP 144/78
[2018-11-29] MEDS: INSULIN LISPRO 100 UNITS/ML SUBCUT SCH ×2 (08:10→13:29)
[2018-11-29] MEDS ORDERED: METFORMIN HCL 500MG TABLET PO SCH (08:10)
[2018-11-29] MEDS ORDERED: FUROSEMIDE 40MG/4ML VIAL IVP SCH (09:00)
[2018-11-29] MEDS ORDERED: ENOXAPARIN 40MG/0.4ML SYR SUBCUT SCH (09:00)
[2018-11-29] MEDS ORDERED: FLUTICASONE ORI SCH (09:00)
[2018-11-29] MEDS ORDERED: BUDESONIDE 0.5MG/2ML NEB HHN SCH (09:00)
[2018-11-29] MEDS ORDERED: LISINOPRIL 10MG TABLET PO SCH (09:00)
[2018-11-29] MEDS ORDERED: SALMETEROL ORI SCH (09:00)
[2018-11-29] MEDS ORDERED: DIGOXIN 125MCG TABLET PO SCH (09:00)
[2018-11-29] MEDS ORDERED: CARVEDILOL 12.5MG TABLET PO SCH (09:00)
[2018-11-29] MEDS ORDERED: TAMSULOSIN HCL 0.4MG SR CAPSULE PO SCH (09:00)
[2018-11-29 12:00] VITALS: BP 132/70
[2018-11-29] MEDS ORDERED: CLONIDINE 0.1MG TABLET PO PRN (13:15)
[2018-11-29] MEDS ORDERED: POTASSIUM CHLORIDE 20MEQ TABLET SR PO SCH (13:15)
[2018-11-29] MEDS ORDERED: CLONIDINE 0.2MG TABLET PO PRN (13:15)
[2018-11-29] MEDS ORDERED: MEDICATION NOT ON FORMULARY EA (Travoprost (Travatan Z) 1 DROP) EACHEYE SCH (17:00)
[2018-11-29] MEDS ORDERED: LATANOPROST 0.005% OPHTH DROPS 2.5ML EACHEYE SCH (17:00)
[2018-11-29] MEDS ORDERED: MEDICATION NOT ON FORMULARY EA (Insulin Glargine,Hum.rec.anlog (Lantus Solostar) 16 UNIT SUBCUT SCH (17:00)
[2018-11-29] MEDS ORDERED: INSULIN GLARGINE UD 100 UNITS/ML SYR SUBCUT SCH (22:00)
== END 2018-11-29 15:40 | disposition left against medical advice (07) | DRG 291 ==
LOC: ER 19:31 → 7WST 20:13 → EDBEDREQ 20:18 → EDBEDREQTM 20:18 → ENRESERV 20:46
PROVIDERS: ADMIT Internal Medicine; ATTEND Internal Medicine
PROC: 5A09357 Assistance with Respiratory Ventilation, Less than 24 Consecutive Hours, Continuous Positive Airway Pressure (ICD-10-PCS; principal; 2018-11-28)
DX: I11.0 Hypertensive heart disease with heart failure (principal); J96.00 Acute respiratory failure, unspecified whether with hypoxia or hypercapnia; I50.23 Acute on chronic systolic (congestive) heart failure; I42.0 Dilated cardiomyopathy; I25.10 Atherosclerotic heart disease of native coronary artery without angina pectoris; D64.9 Anemia, unspecified; D69.6 Thrombocytopenia, unspecified; E11.9 Type 2 diabetes mellitus without complications; E78.00 Pure hypercholesterolemia, unspecified; E78.5 Hyperlipidemia, unspecified; Z53.21 Procedure and treatment not carried out due to patient leaving prior to being seen by health care provider; F41.9 Anxiety disorder, unspecified; I25.5 Ischemic cardiomyopathy; I27.20 Pulmonary hypertension, unspecified; I48.0 Paroxysmal atrial fibrillation; I48.2 Chronic atrial fibrillation; J44.9 Chronic obstructive pulmonary disease, unspecified; Z79.01 Long term (current) use of anticoagulants; Z79.4 Long term (current) use of insulin; Z87.891 Personal history of nicotine dependence; Z95.1 Presence of aortocoronary bypass graft; Z79.84 Long term (current) use of oral hypoglycemic drugs; Z95.810 Presence of automatic (implantable) cardiac defibrillator
CPT/HCPCS: 36415; 71045; 80048; 82962; 83880; 84145; 84484; 93005; 93971; 94660; 96374; 99285; J1815; J1940; J7611; J7626

== ENCOUNTER 2019-02-04 19:30 | Inpatient (IN) | payer MEDICARE, MEDICAID ==
[~2019-02-04] VITALS: Ht 172.7 cm; Wt 72.6 kg
[~2019-02-04 19:30] MED LIST changes: +FURO-151 PO; -FURO40TA5 PO
[2019-02-04] MEDS ORDERED: IPRATROPIUM BROMIDE (0.02%) 0.5MG/2.5ML NEB HHN STA (20:32)
[2019-02-04] MEDS ORDERED: METHYLPREDNISOLONE SOD SUCC 125 MG/2 ML VIAL IV STA (20:32)
[2019-02-04] MEDS ORDERED: ALBUTEROL (0.083%) 2.5MG/3ML NEB HHN STA (20:32)
[2019-02-04] MEDS ORDERED: NITROGLYCERIN OINT 1GM/INCH UDPKT TD ONE (20:45)
[2019-02-04 20:58] LABS: BASOPHILS % 0.4 % (0.0-2.0); EOSINOPHILS % 0.7 % (0.0-5.0); HEMATOCRIT. 34.9 % (42.0-52.0); HEMOGLOBIN. 11.7 g/dL (14.0-18.0); LYMPHOCYTES % 15.8 % (20.0-50.0); MEAN CORPUSCULAR HEMOGLOBIN 33.3 pg (28.0-32.0); MEAN CORPUSCULAR VOLUME 99.2 fL (80.0-94.0); MEAN PLATELET VOLUME 8.9 fl (7.4-10.4); MONOCYTES % 11.4 % (2.0-8.0); NEUTROPHILS % 71.7 % (40.0-76.0); PLATELET 144 x1000/uL (130-400); RED BLOOD CELL COUNT 3.52 mill/uL (4.7-6.1); RED CELL DISTRIBUTION WIDTH 14.8 % (11.6-14.6)
[2019-02-04 21:03] LABS: CHLORIDE 109 mEq/L (98-107)
[2019-02-04 21:04] LABS: INR 1.3; PROTHROMBIN TIME 13.3 sec (9.6-11.0)
[2019-02-04] MEDS ORDERED: MORPHINE SULFATE 2 MG/ML CPJ (NOT FOR IM USE) IV PRN (23:00)
[2019-02-04] MEDS ORDERED: MAGNESIUM/ALUMINUM HYDROXIDE/SIMETHICONE 30ML UDC PO PRN (23:00)
[2019-02-04] MEDS ORDERED: ACETAMINOPHEN 325MG TABLET PO PRN (23:00)
[2019-02-04] MEDS ORDERED: CLONIDINE 0.1MG TABLET PO PRN (23:00)
[2019-02-04] MEDS ORDERED: DEXTROSE 50% WATER 50ML SYRINGE IV PRN (23:00)
[2019-02-04] MEDS ORDERED: IPRATROPIUM/ALBUTEROL 0.5-3(2.5)MG/3ML NEB INH PRN (23:00)
[2019-02-04] MEDS ORDERED: HYDROCODONE/ACETAMINOPHEN 10/325MG TABLET PO PRN (23:00)
[2019-02-04] MEDS ORDERED: HYDRALAZINE 20MG/ML VIAL IV PRN (23:00)
[2019-02-04] MEDS ORDERED: DOCUSATE SODIUM 100MG CAPSULE PO PRN (23:00)
[2019-02-04] MEDS ORDERED: ONDANSETRON HCL 4MG/2ML INJ IV PRN (23:00)
[2019-02-04] MEDS ORDERED: DIPHENHYDRAMINE 50MG/ML VIAL IV PRN (23:00)
[2019-02-04] MEDS ORDERED: LORAZEPAM 2MG/ML CPJ IV PRN (23:00)
[2019-02-04] MEDS ORDERED: GUAIFENESIN 200MG/10ML SUGAR FREE UDC PO PRN (23:00)
[2019-02-04] MEDS ORDERED: ASPIRIN 81MG EC TABLET PO NR (23:30)
[2019-02-04] MEDS ORDERED: ENOXAPARIN 40MG/0.4ML SYR SUBCUT NR (23:30)
[2019-02-05 00:55] VITALS: BP 123/73
[2019-02-05 01:00] VITALS: BP 123/73
[2019-02-05] MEDS: SODIUM CHLORIDE 0.9% INJ 3ML FLUSH IVF SCH ×3 (05:42→21:41)
[2019-02-05] MEDS: BLOOD SUGAR DIAGNOSTIC STRIP TEST SCH ×4 (05:42→21:41)
[2019-02-05 06:29] LABS: INR 1.3; PROTHROMBIN TIME 12.9 sec (9.6-11.0)
[2019-02-05 06:51] LABS: CHLORIDE 111 mEq/L (98-107)
[2019-02-05 06:54] LABS: BASOPHILS % 0.1 % (0.0-2.0); HEMATOCRIT. 32.6 % (42.0-52.0); HEMOGLOBIN. 11.2 g/dL (14.0-18.0); LYMPHOCYTES % 8.8 % (20.0-50.0); MEAN CORPUSCULAR HEMOGLOBIN 33.8 pg (28.0-32.0); MEAN CORPUSCULAR VOLUME 98.6 fL (80.0-94.0); MONOCYTES % 1.3 % (2.0-8.0); NEUTROPHILS % 89.8 % (40.0-76.0); PLATELET 128 x1000/uL (130-400); RED CELL DISTRIBUTION WIDTH 14.3 % (11.6-14.6)
[2019-02-05 06:59] LABS: LDL CHOLESTEROL 47 mg/dL (5-100)
[2019-02-05 07:00] LABS: T4 FREE 1.18 ng/dL (0.76-1.46)
[2019-02-05 07:01] LABS: CREATINE KINASE 105 IU/L (39-308); CREATINE KINASE MB FRACTION 1.7 ng/mL (0.5-3.6); HDL CHOLESTEROL 41 mg/dL (40-59)
[2019-02-05 08:00] VITALS: BP 144/76
[2019-02-05] MEDS: INSULIN LISPRO 100 UNITS/ML SUBCUT SCH ×4 (08:52→21:41)
[2019-02-05] MEDS ORDERED: ENOXAPARIN 40MG/0.4ML SYR SUBCUT SCH (09:00)
[2019-02-05] MEDS ORDERED: ASPIRIN 81MG EC TABLET PO SCH (09:00)
[2019-02-05 12:00] VITALS: BP 118/42
[2019-02-05] MEDS ORDERED: BUDESONIDE 0.5MG/2ML NEB HHN SCH (14:00)
[2019-02-05 15:59] LABS: CREATINE KINASE 106 IU/L (39-308)
[2019-02-05 16:00] VITALS: BP 132/56
[2019-02-05 16:00] LABS: CREATINE KINASE MB FRACTION 1.8 ng/mL (0.5-3.6)
[2019-02-05] MEDS ORDERED: IPRATROPIUM/ALBUTEROL 0.5-3(2.5)MG/3ML NEB HHN SCH (16:00)
[2019-02-05] MEDS: CLOPIDOGREL 75MG TABLET PO SCH (16:01)
[2019-02-05] MEDS: LOSARTAN POTASSIUM 25 MG TABLET PO SCH (16:02)
[2019-02-05 16:19] LABS: HEPATITIS B SURFACE ANTIGEN NEGATIVE
[2019-02-05] MEDS: FUROSEMIDE 40MG/4ML VIAL IVP SCH (16:24)
[2019-02-05 16:49] LABS: HEPATITIS A AB IGM NEGATIVE (NEGATIVE)
[2019-02-05] MEDS ORDERED: INSU100I28 SQ (17:03)
[2019-02-05] MEDS ORDERED: METF500T3 PO (17:05)
[2019-02-05] MEDS ORDERED: LISI10TA5 MT (17:06)
[2019-02-05] MEDS: APIXABAN 2.5 MG TABLET PO SCH (18:37)
[2019-02-05 20:00] VITALS: BP 144/75
[2019-02-06] VITALS: BP 107/55
[2019-02-06 04:00] VITALS: BP 135/84
[2019-02-06] MEDS: SODIUM CHLORIDE 0.9% INJ 3ML FLUSH IVF SCH (06:20)
[2019-02-06 06:42] LABS: BASOPHILS % 0.3 % (0.0-2.0); EOSINOPHILS % 0.2 % (0.0-5.0); HEMATOCRIT. 36.3 % (42.0-52.0); HEMOGLOBIN. 12.2 g/dL (14.0-18.0); LYMPHOCYTES % 22.1 % (20.0-50.0); MEAN CORPUSCULAR HEMOGLOBIN 33.4 pg (28.0-32.0); MEAN CORPUSCULAR VOLUME 99.1 fL (80.0-94.0); MEAN PLATELET VOLUME 8.9 fl (7.4-10.4); MONOCYTES % 10.5 % (2.0-8.0); NEUTROPHILS % 66.9 % (40.0-76.0); PLATELET 145 x1000/uL (130-400); RED BLOOD CELL COUNT 3.66 mill/uL (4.7-6.1); RED CELL DISTRIBUTION WIDTH 14.7 % (11.6-14.6)
[2019-02-06 06:47] LABS: CHLORIDE 106 mEq/L (98-107)
[2019-02-06 06:56] LABS: CREATINE KINASE 110 IU/L (39-308)
[2019-02-06 06:59] LABS: CREATINE KINASE MB FRACTION 2.3 ng/mL (0.5-3.6)
[2019-02-06] MEDS: BLOOD SUGAR DIAGNOSTIC STRIP TEST SCH ×2 (07:40→12:40)
[2019-02-06 08:00] VITALS: BP 129/81
[2019-02-06] MEDS: INSULIN LISPRO 100 UNITS/ML SUBCUT SCH ×2 (08:10→13:19)
[2019-02-06] MEDS: APIXABAN 2.5 MG TABLET PO SCH (08:40)
[2019-02-06] MEDS: CLOPIDOGREL 75MG TABLET PO SCH (08:40)
[2019-02-06] MEDS: LOSARTAN POTASSIUM 25 MG TABLET PO SCH (08:40)
[2019-02-06] MEDS: FUROSEMIDE 40MG/4ML VIAL IVP SCH (10:02)
[2019-02-06 12:00] VITALS: BP 125/80
== END 2019-02-06 16:37 | disposition home or self-care (01) | DRG 291 ==
LOC: ER 19:57 → 7WST 22:42 → EDBEDREQ 22:50 → EDBEDREQTM 22:50 → ENRESERV 02-05
PROVIDERS: ADMIT Internal Medicine; ATTEND Internal Medicine
DX: I11.0 Hypertensive heart disease with heart failure (principal); J96.00 Acute respiratory failure, unspecified whether with hypoxia or hypercapnia; N17.9 Acute kidney failure, unspecified; T79.A3XA Traumatic compartment syndrome of abdomen, initial encounter; I50.43 Acute on chronic combined systolic (congestive) and diastolic (congestive) heart failure; I42.0 Dilated cardiomyopathy; I25.10 Atherosclerotic heart disease of native coronary artery without angina pectoris; E11.9 Type 2 diabetes mellitus without complications; F41.9 Anxiety disorder, unspecified; I25.5 Ischemic cardiomyopathy; E78.5 Hyperlipidemia, unspecified; B19.20 Unspecified viral hepatitis C without hepatic coma; I48.0 Paroxysmal atrial fibrillation; X58.XXXA Exposure to other specified factors, initial encounter; I83.90 Asymptomatic varicose veins of unspecified lower extremity; I27.20 Pulmonary hypertension, unspecified; J43.9 Emphysema, unspecified; Z79.01 Long term (current) use of anticoagulants; Z79.4 Long term (current) use of insulin; Z79.82 Long term (current) use of aspirin; I25.2 Old myocardial infarction; Z99.81 Dependence on supplemental oxygen; Z95.810 Presence of automatic (implantable) cardiac defibrillator; Z95.5 Presence of coronary angioplasty implant and graft; Z95.1 Presence of aortocoronary bypass graft; Z79.02 Long term (current) use of antithrombotics/antiplatelets; Z79.899 Other long term (current) drug therapy; Z87.891 Personal history of nicotine dependence; D64.9 Anemia, unspecified
CPT/HCPCS: 36415; 71045; 74018; 76700; 80061; 82550; 82553; 82962; 83605; 83735; 83880; 84439; 84443; 84484; 86705; 86709; 86803; 87340; 93005; 93970; 94640; 96374; 99285; J1650; J1815; J1940; J2060; J2930; J7611

== ENCOUNTER 2019-02-22 17:53 | Inpatient (IN) | payer MEDICARE, MEDICAID ==
[~2019-02-22] VITALS: Ht 172.7 cm; Wt 73.5 kg
[~2019-02-22 17:53] MED LIST changes: +INSU100I28 SQ; -INSU3INS6 SUBCUT; +LISI10TA5 MT; -LISI10TA5 PO; +METF500T3 PO; -METF750T2 PO
[2019-02-22] MEDS ORDERED: FUROSEMIDE 40MG/4ML VIAL IV ONE (19:00)
[2019-02-22 19:15] LABS: BASOPHILS % 0.4 % (0.0-2.0); EOSINOPHILS % 2.2 % (0.0-5.0); HEMATOCRIT. 32.7 % (42.0-52.0); HEMOGLOBIN. 11.1 g/dL (14.0-18.0); LYMPHOCYTES % 25.5 % (20.0-50.0); MEAN CORPUSCULAR HEMOGLOBIN 33.4 pg (28.0-32.0); MEAN CORPUSCULAR VOLUME 98.8 fL (80.0-94.0); MEAN PLATELET VOLUME 9.1 fl (7.4-10.4); MONOCYTES % 12.9 % (2.0-8.0); PLATELET 119 x1000/uL (130-400); RED BLOOD CELL COUNT 3.31 mill/uL (4.7-6.1); RED CELL DISTRIBUTION WIDTH 14.4 % (11.6-14.6)
[2019-02-22 19:21] LABS: CHLORIDE 111 mEq/L (98-107)
[2019-02-22 23:10] VITALS: BP 157/56
[2019-02-22 23:26] VITALS: BP 157/56
[2019-02-23] MEDS ORDERED: DEXTROSE 50% WATER 50ML SYRINGE IV PRN
[2019-02-23 04:00] VITALS: BP 129/72
[2019-02-23] MEDS: BLOOD SUGAR DIAGNOSTIC STRIP TEST SCH ×4 (06:18→21:18)
[2019-02-23] MEDS: INSULIN LISPRO 100 UNITS/ML SUBCUT SCH ×4 (06:18→21:00)
[2019-02-23 08:06] VITALS: BP 135/73
[2019-02-23] MEDS: DIGOXIN 125MCG TABLET PO SCH (08:42)
[2019-02-23] MEDS: FUROSEMIDE 40MG/4ML VIAL IVP SCH ×2 (08:42→21:15)
[2019-02-23] MEDS: LISINOPRIL 20MG TABLET PO SCH (08:43)
[2019-02-23] MEDS: ENOXAPARIN 40MG/0.4ML SYR SUBCUT SCH (08:43)
[2019-02-23] MEDS: CARVEDILOL 12.5MG TABLET PO SCH ×2 (08:43→21:18)
[2019-02-23] MEDS ORDERED: CARVEDILOL 12.5MG TABLET PO SCH (09:00)
[2019-02-23] MEDS: METFORMIN HCL 500MG TABLET PO SCH ×2 (09:05→17:50)
[2019-02-23 12:10] VITALS: BP 124/72
[2019-02-23 16:00] VITALS: BP 133/64
[2019-02-23] MEDS ORDERED: IPRATROPIUM/ALBUTEROL 0.5-3(2.5)MG/3ML NEB HHN PRN (17:45)
[2019-02-23 20:00] VITALS: BP 123/82
[2019-02-23] MEDS ORDERED: ATORVASTATIN CALCIUM 20MG TABLET PO SCH (21:00)
[2019-02-23] MEDS ORDERED: INSULIN GLARGINE UD 100 UNITS/ML SYR SUBCUT SCH (22:00)
[2019-02-24] VITALS: BP 109/72
[2019-02-24 04:00] VITALS: BP 100/58
[2019-02-24] MEDS: BLOOD SUGAR DIAGNOSTIC STRIP TEST SCH ×2 (06:45→12:37)
[2019-02-24] MEDS: INSULIN LISPRO 100 UNITS/ML SUBCUT SCH ×2 (06:46→12:57)
[2019-02-24 08:00] VITALS: BP 123/72
[2019-02-24 08:02] LABS: BASOPHILS % 0.3 % (0.0-2.0); EOSINOPHILS % 2.4 % (0.0-5.0); HEMATOCRIT. 37.5 % (42.0-52.0); HEMOGLOBIN. 12.7 g/dL (14.0-18.0); LYMPHOCYTES % 28.3 % (20.0-50.0); MEAN CORPUSCULAR HEMOGLOBIN 33.1 pg (28.0-32.0); MEAN CORPUSCULAR VOLUME 97.8 fL (80.0-94.0); MEAN PLATELET VOLUME 9.3 fl (7.4-10.4); MONOCYTES % 10.2 % (2.0-8.0); NEUTROPHILS % 58.8 % (40.0-76.0); PLATELET 134 x1000/uL (130-400); RED BLOOD CELL COUNT 3.84 mill/uL (4.7-6.1); RED CELL DISTRIBUTION WIDTH 14.2 % (11.6-14.6)
[2019-02-24 08:08] LABS: CHLORIDE 104 mEq/L (98-107)
[2019-02-24] MEDS: METFORMIN HCL 500MG TABLET PO SCH (08:51)
[2019-02-24] MEDS: CARVEDILOL 12.5MG TABLET PO SCH (08:52)
[2019-02-24] MEDS: FUROSEMIDE 40MG/4ML VIAL IVP SCH (08:52)
[2019-02-24] MEDS: DIGOXIN 125MCG TABLET PO SCH (08:52)
[2019-02-24] MEDS: LISINOPRIL 20MG TABLET PO SCH (08:52)
[2019-02-24] MEDS: ENOXAPARIN 40MG/0.4ML SYR SUBCUT SCH (08:53)
[2019-02-24 12:00] VITALS: BP 103/58
[2019-02-24 13:16] VITALS: BP 103/58
== END 2019-02-24 13:50 | disposition home health service (06) | DRG 291 ==
LOC: ER 17:53 → 5WST 21:10 → EDBEDREQTM 21:12 → EDBEDREQ 21:12 → ENRESERV 21:52 → ER 22:15
PROVIDERS: ADMIT Internal Medicine; ATTEND Internal Medicine
DX: I11.0 Hypertensive heart disease with heart failure (principal); I50.21 Acute systolic (congestive) heart failure; E44.1 Mild protein-calorie malnutrition; J96.10 Chronic respiratory failure, unspecified whether with hypoxia or hypercapnia; D64.9 Anemia, unspecified; D69.6 Thrombocytopenia, unspecified; E11.9 Type 2 diabetes mellitus without complications; E87.8 Other disorders of electrolyte and fluid balance, not elsewhere classified; E78.5 Hyperlipidemia, unspecified; I25.5 Ischemic cardiomyopathy; I25.10 Atherosclerotic heart disease of native coronary artery without angina pectoris; I48.0 Paroxysmal atrial fibrillation; J43.9 Emphysema, unspecified; S61.215A Laceration without foreign body of left ring finger without damage to nail, initial encounter; X58.XXXA Exposure to other specified factors, initial encounter; Y93.89 Activity, other specified; Y92.89 Other specified places as the place of occurrence of the external cause; Y99.8 Other external cause status; Z87.891 Personal history of nicotine dependence; Z95.1 Presence of aortocoronary bypass graft; Z95.5 Presence of coronary angioplasty implant and graft; Z95.810 Presence of automatic (implantable) cardiac defibrillator; Z99.81 Dependence on supplemental oxygen; Z68.24 Body mass index [BMI] 24.0-24.9, adult; Z79.84 Long term (current) use of oral hypoglycemic drugs; Z79.4 Long term (current) use of insulin
CPT/HCPCS: 36415; 71045; 80048; 82962; 83880; 84484; 93005; 93306; 96374; 96375; 99285; J1650; J1815; J1940

== ENCOUNTER 2019-03-23 18:41 | Emergency (ER) | payer MEDICARE, MEDICAID ==
[~2019-03-23] VITALS: Ht 172.7 cm; Wt 72.0 kg
[~2019-03-23 18:41] MED LIST changes: -TAMS0.4C31 PO
[2019-03-23 18:44] VITALS: BP 160/84
== END 2019-03-23 22:49 | disposition left against medical advice (07) ==
LOC: ER 18:41
DX: Z53.21 Procedure and treatment not carried out due to patient leaving prior to being seen by health care provider (principal); J44.9 Chronic obstructive pulmonary disease, unspecified; E11.9 Type 2 diabetes mellitus without complications; E78.00 Pure hypercholesterolemia, unspecified; Z95.0 Presence of cardiac pacemaker; Z95.1 Presence of aortocoronary bypass graft; Z87.891 Personal history of nicotine dependence

== ENCOUNTER 2019-03-27 14:28 | Inpatient (IN) | payer MEDICARE, MEDICAID ==
[~2019-03-27] VITALS: Ht 160 cm; Wt 64.9 kg
[2019-03-27 16:10] LABS: CHLORIDE 113 mEq/L (98-107)
[2019-03-27 16:14] LABS: BASOPHILS % 0.4 % (0.0-2.0); EOSINOPHILS % 1.6 % (0.0-5.0); HEMATOCRIT. 33.7 % (42.0-52.0); HEMOGLOBIN. 11.6 g/dL (14.0-18.0); LYMPHOCYTES % 15.9 % (20.0-50.0); MEAN CORPUSCULAR HEMOGLOBIN 33.5 pg (28.0-32.0); MEAN CORPUSCULAR VOLUME 97.7 fL (80.0-94.0); MEAN PLATELET VOLUME 9.4 fl (7.4-10.4); NEUTROPHILS % 72.1 % (40.0-76.0); PLATELET 135 x1000/uL (130-400); RED BLOOD CELL COUNT 3.45 mill/uL (4.7-6.1); RED CELL DISTRIBUTION WIDTH 14.3 % (11.6-14.6)
[2019-03-27] MEDS ORDERED: ALBUTEROL (0.5%) 2.5MG/0.5ML NEB HHN ONE (16:30)
[2019-03-27] MEDS ORDERED: IPRATROPIUM BROMIDE (0.02%) 0.5MG/2.5ML NEB HHN ONE (16:30)
[2019-03-27] MEDS ORDERED: METHYLPREDNISOLONE SOD SUCC 125 MG/2 ML VIAL IV ONE (16:30)
[2019-03-27 18:15] VITALS: BP 168/90
[2019-03-27] MEDS ORDERED: HYDROCODONE/ACETAMINOPHEN 5/325MG TABLET PO PRN (18:30)
[2019-03-27] MEDS ORDERED: IPRATROPIUM/ALBUTEROL 0.5-3(2.5)MG/3ML NEB NEB PRN (18:30)
[2019-03-27] MEDS ORDERED: ACETAMINOPHEN 325MG TABLET PO PRN (18:30)
[2019-03-27] MEDS ORDERED: MORPHINE SULFATE 2 MG/ML CPJ (NOT FOR IM USE) IV PRN (18:30)
[2019-03-27] MEDS ORDERED: LORAZEPAM 2MG/ML CPJ IV PRN (18:30)
[2019-03-27] MEDS ORDERED: GUAIFENESIN 200MG/10ML SUGAR FREE UDC PO PRN (18:30)
[2019-03-27] MEDS ORDERED: DOCUSATE SODIUM 100MG CAPSULE PO PRN (18:30)
[2019-03-27] MEDS ORDERED: ONDANSETRON HCL 4MG/2ML INJ IV PRN (18:30)
[2019-03-27] MEDS ORDERED: MAGNESIUM/ALUMINUM HYDROXIDE/SIMETHICONE 30ML UDC PO PRN (18:30)
[2019-03-27] MEDS ORDERED: CLONIDINE 0.1MG TABLET PO PRN (18:30)
[2019-03-27] MEDS ORDERED: METHYLPREDNISOLONE SOD SUCC 125 MG/2 ML VIAL IV SCH (19:00)
[2019-03-27 20:00] VITALS: BP 107/68
[2019-03-27] MEDS ORDERED: ENOXAPARIN 40MG/0.4ML SYR SUBCUT SCH (20:00)
[2019-03-27 20:21] VITALS: BP 107/68
[2019-03-27] MEDS: FUROSEMIDE 40MG/4ML VIAL IV SCH (20:34)
[2019-03-27] MEDS: METHYLPREDNISOLONE SOD SUCC 125 MG/2 ML VIAL IV SCH (23:58)
[2019-03-28 00:35] VITALS: BP 142/62
[2019-03-28 00:41] LABS: CREATINE KINASE 129 IU/L (39-308)
[2019-03-28] MEDS: IPRATROPIUM/ALBUTEROL 0.5-3(2.5)MG/3ML NEB NEB SCH ×3 (02:59→15:20)
[2019-03-28 04:00] VITALS: BP 146/74
[2019-03-28] MEDS: METHYLPREDNISOLONE SOD SUCC 125 MG/2 ML VIAL IV SCH ×2 (05:46→10:35)
[2019-03-28 07:11] LABS: BASOPHILS % 0.1 % (0.0-2.0); HEMATOCRIT. 35.3 % (42.0-52.0); HEMOGLOBIN. 12.2 g/dL (14.0-18.0); LYMPHOCYTES % 11.4 % (20.0-50.0); MEAN CORPUSCULAR HEMOGLOBIN 33.3 pg (28.0-32.0); MEAN CORPUSCULAR VOLUME 96.6 fL (80.0-94.0); MEAN PLATELET VOLUME 9.1 fl (7.4-10.4); MONOCYTES % 1.3 % (2.0-8.0); NEUTROPHILS % 87.2 % (40.0-76.0); PLATELET 141 x1000/uL (130-400); RED BLOOD CELL COUNT 3.65 mill/uL (4.7-6.1); RED CELL DISTRIBUTION WIDTH 14.2 % (11.6-14.6)
[2019-03-28 07:28] LABS: CHLORIDE 107 mEq/L (98-107)
[2019-03-28 07:35] LABS: LDL CHOLESTEROL 62 mg/dL (5-100)
[2019-03-28 07:36] LABS: CREATINE KINASE 112 IU/L (39-308)
[2019-03-28 07:38] LABS: HDL CHOLESTEROL 53 mg/dL (40-59)
[2019-03-28 07:41] LABS: BG BASE EXCESS 0.6 mmol/L (-2.0-2.0); BG CARBOXYHEMOGLOBIN 0.2 % (0.5-1.5); BG FRACTION INSPIRED OXYGEN 21; BG HCO3 ACT 23.1 mmol/L (22.0-26.0); BG METHEMOGLOBIN 0.3 % (0.0-1.5); BG OXYHEMOGLOBIN 94.5 % (94.0-97.0); BG PO2 70.2 mmHg (75.0-100.0); BG SAMPLE SITE RIGHT BRACHIAL; BG TOTAL HEMOGLOBIN 13.4 g/dL (12.0-18.0); BG VENT MODE ROOM AIR
[2019-03-28] MEDS ORDERED: DEXTROSE 50% WATER 50ML SYRINGE IV PRN (07:45)
[2019-03-28] MEDS: INSULIN LISPRO 100 UNITS/ML SUBCUT SCH ×4 (07:50→16:59)
[2019-03-28 08:00] VITALS: BP 153/78
[2019-03-28] MEDS ORDERED: AMLODIPINE 10MG TABLET PO SCH (09:00)
[2019-03-28] MEDS: FUROSEMIDE 40MG/4ML VIAL IV SCH (09:42)
[2019-03-28] MEDS ORDERED: FUROSEMIDE 40MG/4ML VIAL IVP SCH (10:35)
[2019-03-28] MEDS ORDERED: CARVEDILOL 12.5MG TABLET PO SCH (10:35)
[2019-03-28] MEDS ORDERED: LISINOPRIL 10MG TABLET PO SCH (10:45)
[2019-03-28] MEDS ORDERED: DIGOXIN 125MCG TABLET PO SCH (10:45)
[2019-03-28] MEDS: BLOOD SUGAR DIAGNOSTIC STRIP TEST SCH ×2 (11:49→16:59)
[2019-03-28 12:00] VITALS: BP 125/61
[2019-03-28 15:30] VITALS: BP 125/61
[2019-03-28 16:00] VITALS: BP 134/60
[2019-03-28] MEDS ORDERED: PREDNISONE 20MG TABLET PO SCH (17:00)
[2019-03-28] MEDS ORDERED: METFORMIN HCL 850MG TABLET PO SCH (17:50)
[2019-03-28] MEDS ORDERED: ATORVASTATIN CALCIUM 40MG TABLET PO SCH (21:00)
[2019-03-28] MEDS ORDERED: INSULIN GLARGINE UD 100 UNITS/ML SYR SUBCUT SCH (22:00)
== END 2019-03-28 18:00 | disposition left against medical advice (07) | DRG 291 ==
LOC: ER 14:28 → 6WST 16:19 → EDBEDREQ 16:22 → EDBEDREQTM 16:22 → EDBEDREQ 16:27 → ENRESERV 17:08 → 6WST 18:24
PROVIDERS: ADMIT Hospitalist; ATTEND Hospitalist
DX: I11.0 Hypertensive heart disease with heart failure (principal); J96.00 Acute respiratory failure, unspecified whether with hypoxia or hypercapnia; J44.1 Chronic obstructive pulmonary disease with (acute) exacerbation; I50.43 Acute on chronic combined systolic (congestive) and diastolic (congestive) heart failure; N40.0 Benign prostatic hyperplasia without lower urinary tract symptoms; I27.20 Pulmonary hypertension, unspecified; I25.10 Atherosclerotic heart disease of native coronary artery without angina pectoris; F41.9 Anxiety disorder, unspecified; I48.0 Paroxysmal atrial fibrillation; E78.5 Hyperlipidemia, unspecified; I25.5 Ischemic cardiomyopathy; Z53.21 Procedure and treatment not carried out due to patient leaving prior to being seen by health care provider; D64.9 Anemia, unspecified; I83.90 Asymptomatic varicose veins of unspecified lower extremity; E11.65 Type 2 diabetes mellitus with hyperglycemia; B19.20 Unspecified viral hepatitis C without hepatic coma; Z99.81 Dependence on supplemental oxygen; I25.2 Old myocardial infarction; Z95.5 Presence of coronary angioplasty implant and graft; Z95.1 Presence of aortocoronary bypass graft; Z95.810 Presence of automatic (implantable) cardiac defibrillator; Z79.4 Long term (current) use of insulin; Z87.891 Personal history of nicotine dependence; Z79.899 Other long term (current) drug therapy
CPT/HCPCS: 36415; 36600; 71045; 80061; 80162; 82375; 82550; 82805; 82962; 83880; 84443; 84484; 93005; 94640; 99285; J1650; J1815; J1940; J2930; J7611; J7620

== ENCOUNTER 2019-05-13 16:35 | Inpatient (IN) | payer MEDICARE, MEDICAID ==
[~2019-05-13] VITALS: Ht 160 cm; Wt 66.7 kg
[2019-05-13] MEDS ORDERED: ALBUTEROL (0.083%) 2.5MG/3ML NEB HHN STA (17:49)
[2019-05-13] MEDS ORDERED: METHYLPREDNISOLONE SOD SUCC 125 MG/2 ML VIAL IV STA (17:49)
[2019-05-13 18:24] LABS: BASOPHILS % 0.3 % (0.0-2.0); EOSINOPHILS % 0.6 % (0.0-5.0); HEMATOCRIT. 35.6 % (42.0-52.0); HEMOGLOBIN. 11.9 g/dL (14.0-18.0); LYMPHOCYTES % 17.1 % (20.0-50.0); MEAN CORPUSCULAR HEMOGLOBIN 32.9 pg (28.0-32.0); MEAN CORPUSCULAR VOLUME 98.3 fL (80.0-94.0); MEAN PLATELET VOLUME 9.1 fl (7.4-10.4); MONOCYTES % 9.2 % (2.0-8.0); NEUTROPHILS % 72.8 % (40.0-76.0); PLATELET 123 x1000/uL (130-400); RED BLOOD CELL COUNT 3.62 mill/uL (4.7-6.1); RED CELL DISTRIBUTION WIDTH 14.2 % (11.6-14.6)
[2019-05-13 18:26] LABS: CHLORIDE 109 mEq/L (98-107)
[2019-05-13] MEDS ORDERED: FUROSEMIDE 40MG/4ML VIAL IV ONE (19:00)
[2019-05-13] MEDS ORDERED: ASPIRIN 81MG TABLET PO ONE (19:00)
[2019-05-13] MEDS ORDERED: DEXTROSE 50% WATER 50ML SYRINGE IV PRN (19:15)
[2019-05-13] MEDS ORDERED: LEVOFLOXACIN 500MG PREMIX 100 ML IV SCH (19:15)
[2019-05-13] MEDS ORDERED: LORAZEPAM 0.5MG TABLET PO PRN (19:15)
[2019-05-13] MEDS ORDERED: IPRATROPIUM/ALBUTEROL 0.5-3(2.5)MG/3ML NEB NEB PRN (19:15)
[2019-05-13] MEDS ORDERED: NITROGLYCERIN 0.4MG TABLET SL SL PRN (19:15)
[2019-05-13] MEDS ORDERED: CLONIDINE 0.1MG TABLET PO PRN (19:15)
[2019-05-13] MEDS ORDERED: TRAMADOL 50MG TABLET PO PRN (19:15)
[2019-05-13] MEDS ORDERED: GUAIFENESIN 200MG/10ML SUGAR FREE UDC PO PRN (19:15)
[2019-05-13] MEDS ORDERED: MAGNESIUM/ALUMINUM HYDROXIDE/SIMETHICONE 30ML UDC PO PRN (19:15)
[2019-05-13] MEDS ORDERED: ACETAMINOPHEN 325MG TABLET PO PRN (19:15)
[2019-05-13] MEDS ORDERED: ZOLPIDEM TARTRATE 5MG TABLET PO PRN (19:15)
[2019-05-13] MEDS ORDERED: ONDANSETRON HCL 4MG/2ML INJ IV PRN (19:15)
[2019-05-13] MEDS ORDERED: DOCUSATE SODIUM 100MG CAPSULE PO PRN (19:15)
[2019-05-13 23:20] LABS: CREATINE KINASE 113 IU/L (39-308)
[2019-05-13 23:21] LABS: CREATINE KINASE MB FRACTION 1.9 ng/mL (0.5-3.6)
[2019-05-14 02:09] VITALS: BP 176/84
[2019-05-14 04:00] VITALS: BP 135/63
[2019-05-14] MEDS: METHYLPREDNISOLONE SOD SUCC 125 MG/2 ML VIAL IV SCH ×2 (05:27→14:03)
[2019-05-14] MEDS: LEVOFLOXACIN 500MG PREMIX 100 ML IV SCH (05:28)
[2019-05-14] MEDS: BLOOD SUGAR DIAGNOSTIC STRIP TEST SCH ×4 (05:54→21:10)
[2019-05-14] MEDS: INSULIN LISPRO 100 UNITS/ML SUBCUT SCH ×4 (06:17→21:25)
[2019-05-14 08:00] VITALS: BP 163/76
[2019-05-14] MEDS: IPRATROPIUM/ALBUTEROL 0.5-3(2.5)MG/3ML NEB HHN SCH ×3 (08:55→16:35)
[2019-05-14] MEDS: GUAIFENESIN/DM 600MG/30MG ER TAB 12HR PO SCH ×2 (09:30→21:20)
[2019-05-14] MEDS: FUROSEMIDE 40MG/4ML VIAL IVP SCH ×2 (09:30→21:21)
[2019-05-14] MEDS: ASPIRIN 325MG EC TABLET PO SCH (09:31)
[2019-05-14] MEDS: ZINC SULFATE 220 MG ( 50 ) CAPSULE PO SCH (09:31)
[2019-05-14] MEDS: SPIRONOLACTONE 25MG TABLET PO SCH ×2 (09:32→21:20)
[2019-05-14] MEDS: LISINOPRIL 10MG TABLET PO SCH ×2 (09:32→21:20)
[2019-05-14] MEDS: ENOXAPARIN 40MG/0.4ML SYR SUBCUT SCH (09:55)
[2019-05-14 12:00] VITALS: BP 163/76
[2019-05-14 12:59] LABS: CREATINE KINASE 109 IU/L (39-308)
[2019-05-14 13:00] LABS: CREATINE KINASE MB FRACTION 1.7 ng/mL (0.5-3.6)
[2019-05-14 16:00] VITALS: BP 113/68
[2019-05-14 20:00] VITALS: BP 133/60
[2019-05-14] MEDS: PREDNISONE 20MG TABLET PO SCH (21:20)
[2019-05-15] VITALS: BP 103/53
[2019-05-15 04:00] VITALS: BP 135/76
[2019-05-15] MEDS: IPRATROPIUM/ALBUTEROL 0.5-3(2.5)MG/3ML NEB HHN SCH ×2 (04:00→21:28)
[2019-05-15] MEDS: BLOOD SUGAR DIAGNOSTIC STRIP TEST SCH ×4 (06:05→21:31)
[2019-05-15] MEDS: PREDNISONE 20MG TABLET PO SCH (06:05)
[2019-05-15] MEDS: INSULIN LISPRO 100 UNITS/ML SUBCUT SCH ×4 (06:16→21:32)
[2019-05-15 08:00] VITALS: BP 136/67
[2019-05-15] MEDS: ASPIRIN 325MG EC TABLET PO SCH (10:27)
[2019-05-15] MEDS: SPIRONOLACTONE 25MG TABLET PO SCH ×2 (10:27→21:31)
[2019-05-15] MEDS: ZINC SULFATE 220 MG ( 50 ) CAPSULE PO SCH (10:27)
[2019-05-15] MEDS: FUROSEMIDE 40MG/4ML VIAL IVP SCH ×3 (10:27→21:30)
[2019-05-15] MEDS: LISINOPRIL 10MG TABLET PO SCH ×2 (10:28→21:31)
[2019-05-15] MEDS: LEVOFLOXACIN 500MG PREMIX 100 ML IV SCH (10:29)
[2019-05-15] MEDS: ENOXAPARIN 40MG/0.4ML SYR SUBCUT SCH (10:29)
[2019-05-15 12:00] VITALS: BP 143/75
[2019-05-15] MEDS: GUAIFENESIN/DM 600MG/30MG ER TAB 12HR PO SCH ×2 (12:58→21:00)
[2019-05-15 16:00] VITALS: BP 144/69
[2019-05-15 20:00] VITALS: BP 151/80
[2019-05-16] VITALS: BP 156/79
[2019-05-16] MEDS: IPRATROPIUM/ALBUTEROL 0.5-3(2.5)MG/3ML NEB HHN SCH ×2 (00:39→08:19)
[2019-05-16 04:00] VITALS: BP 141/78
[2019-05-16] MEDS: INSULIN LISPRO 100 UNITS/ML SUBCUT SCH ×2 (06:33→12:48)
[2019-05-16] MEDS: BLOOD SUGAR DIAGNOSTIC STRIP TEST SCH ×2 (06:33→12:42)
[2019-05-16] MEDS ORDERED: PREDNISONE 20MG TABLET PO SCH (07:15)
[2019-05-16] MEDS: LEVOFLOXACIN 500MG PREMIX 100 ML IV SCH (08:00)
[2019-05-16] MEDS: FUROSEMIDE 40MG/4ML VIAL IVP SCH (08:42)
[2019-05-16] MEDS: ENOXAPARIN 40MG/0.4ML SYR SUBCUT SCH (08:43)
[2019-05-16] MEDS: LISINOPRIL 10MG TABLET PO SCH (08:43)
[2019-05-16] MEDS: ASPIRIN 325MG EC TABLET PO SCH (08:43)
[2019-05-16] MEDS: ZINC SULFATE 220 MG ( 50 ) CAPSULE PO SCH (08:43)
[2019-05-16] MEDS: SPIRONOLACTONE 25MG TABLET PO SCH (08:48)
[2019-05-16] MEDS: GUAIFENESIN/DM 600MG/30MG ER TAB 12HR PO SCH (11:28)
[2019-05-16 12:00] VITALS: BP 116/67
== END 2019-05-16 14:55 | disposition home or self-care (01) | DRG 291 ==
LOC: ER 16:35 → 5WST 19:02 → EDBEDREQTM 19:05 → EDBEDREQ 19:05 → SUPCPDRO 19:12 → ENRESERV 23:36
PROVIDERS: ADMIT Internal Medicine; ATTEND Internal Medicine
DX: I11.0 Hypertensive heart disease with heart failure (principal); J96.00 Acute respiratory failure, unspecified whether with hypoxia or hypercapnia; J44.1 Chronic obstructive pulmonary disease with (acute) exacerbation; I50.43 Acute on chronic combined systolic (congestive) and diastolic (congestive) heart failure; I42.9 Cardiomyopathy, unspecified; B19.20 Unspecified viral hepatitis C without hepatic coma; D63.8 Anemia in other chronic diseases classified elsewhere; E78.00 Pure hypercholesterolemia, unspecified; E11.65 Type 2 diabetes mellitus with hyperglycemia; F41.9 Anxiety disorder, unspecified; E78.5 Hyperlipidemia, unspecified; I25.10 Atherosclerotic heart disease of native coronary artery without angina pectoris; I27.20 Pulmonary hypertension, unspecified; I48.91 Unspecified atrial fibrillation; Z95.1 Presence of aortocoronary bypass graft; Z99.81 Dependence on supplemental oxygen; Z95.810 Presence of automatic (implantable) cardiac defibrillator; Z79.4 Long term (current) use of insulin; Z91.11 Patient's noncompliance with dietary regimen; Z91.14 Patient's other noncompliance with medication regimen; Z91.19 Patient's noncompliance with other medical treatment and regimen; Z79.899 Other long term (current) drug therapy
CPT/HCPCS: 36415; 71045; 80061; 80162; 82550; 82553; 82962; 83036; 83880; 84484; 93005; 93970; 94640; 96374; 96375; 97161; 99285; J1650; J1815; J1940; J1956; J2930; J7512; J7611; J7620

== ENCOUNTER 2019-06-10 16:38 | Inpatient (IN) | payer MEDICARE, MEDICAID ==
[~2019-06-10] VITALS: Ht 162.6 cm; Wt 68.9 kg
[2019-06-10] MEDS ORDERED: METHYLPREDNISOLONE SOD SUCC 125 MG/2 ML VIAL IV STA (17:29)
[2019-06-10] MEDS ORDERED: ALBUTEROL (0.083%) 2.5MG/3ML NEB HHN STA (17:29)
[2019-06-10] MEDS ORDERED: ASPIRIN 81MG TABLET PO ONE (17:30)
[2019-06-10] MEDS ORDERED: FUROSEMIDE 40MG/4ML VIAL IV ONE (17:30)
[2019-06-10 18:02] LABS: BASOPHILS % 0.4 % (0.0-2.0); EOSINOPHILS % 0.8 % (0.0-5.0); HEMATOCRIT. 36.5 % (42.0-52.0); HEMOGLOBIN. 12.2 g/dL (14.0-18.0); LYMPHOCYTES % 15.6 % (20.0-50.0); MEAN CORPUSCULAR HEMOGLOBIN 33.5 pg (28.0-32.0); MEAN PLATELET VOLUME 9.3 fl (7.4-10.4); MONOCYTES % 9.1 % (2.0-8.0); NEUTROPHILS % 74.1 % (40.0-76.0); PLATELET 135 x1000/uL (130-400); RED BLOOD CELL COUNT 3.65 mill/uL (4.7-6.1); RED CELL DISTRIBUTION WIDTH 14.3 % (11.6-14.6)
[2019-06-10 18:07] LABS: CHLORIDE 109 mEq/L (98-107)
[2019-06-10] MEDS ORDERED: GUAIFENESIN 200MG/10ML SUGAR FREE UDC PO PRN (19:45)
[2019-06-10] MEDS ORDERED: ONDANSETRON HCL 4MG/2ML INJ IV PRN (19:45)
[2019-06-10] MEDS ORDERED: TRAMADOL 50MG TABLET PO PRN (19:45)
[2019-06-10] MEDS ORDERED: MAGNESIUM/ALUMINUM HYDROXIDE/SIMETHICONE 30ML UDC PO PRN (19:45)
[2019-06-10] MEDS ORDERED: IPRATROPIUM/ALBUTEROL 0.5-3(2.5)MG/3ML NEB NEB PRN (19:45)
[2019-06-10] MEDS ORDERED: CLONIDINE 0.1MG TABLET PO PRN (19:45)
[2019-06-10] MEDS ORDERED: DIPHENHYDRAMINE 50MG/ML VIAL IV PRN (19:45)
[2019-06-10] MEDS ORDERED: DEXTROSE 50% WATER 50ML SYRINGE IV PRN (19:45)
[2019-06-10] MEDS ORDERED: ACETAMINOPHEN 325MG TABLET PO PRN (19:45)
[2019-06-10] MEDS ORDERED: MAGNESIUM HYDROXIDE 400MG/5ML 30ML UDC PO PRN (19:45)
[2019-06-10] MEDS: BLOOD SUGAR DIAGNOSTIC STRIP TEST SCH (21:30)
[2019-06-10 21:40] VITALS: BP 176/65
[2019-06-10] MEDS: FAMOTIDINE 20MG TABLET PO SCH (21:58)
[2019-06-10] MEDS: SODIUM CHLORIDE 0.9% INJ 3ML FLUSH IVF SCH (21:59)
[2019-06-10] MEDS: ATORVASTATIN CALCIUM 40MG TABLET PO SCH (21:59)
[2019-06-10] MEDS ORDERED: INSULIN GLARGINE UD 100 UNITS/ML SYR SUBCUT SCH (22:00)
[2019-06-10] MEDS ORDERED: ZOLPIDEM TARTRATE 5MG TABLET PO PRN (22:00)
[2019-06-10] MEDS: CARVEDILOL 12.5MG TABLET PO SCH (22:00)
[2019-06-10] MEDS: ENOXAPARIN 40MG/0.4ML SYR SUBCUT SCH (22:01)
[2019-06-10] MEDS: INSULIN LISPRO 100 UNITS/ML SUBCUT SCH (22:03)
[2019-06-10] MEDS: BUDESONIDE 0.5MG/2ML NEB HHN SCH ×2 (22:20→22:24)
[2019-06-10] MEDS: IPRATROPIUM/ALBUTEROL 0.5-3(2.5)MG/3ML NEB HHN SCH ×2 (22:21→22:25)
[2019-06-10 22:44] VITALS: BP 176/65
[2019-06-10] MEDS: METHYLPREDNISOLONE SOD SUCC 40 MG/ML VIAL IV SCH (23:28)
[2019-06-10] MEDS: LISINOPRIL 10MG TABLET PO SCH (23:29)
[2019-06-11] VITALS: BP 140/78
[2019-06-11 04:00] VITALS: BP 147/85
[2019-06-11] MEDS: IPRATROPIUM/ALBUTEROL 0.5-3(2.5)MG/3ML NEB HHN SCH ×4 (04:40→20:21)
[2019-06-11] MEDS: SODIUM CHLORIDE 0.9% INJ 3ML FLUSH IVF SCH ×3 (06:17→21:31)
[2019-06-11] MEDS: BLOOD SUGAR DIAGNOSTIC STRIP TEST SCH ×4 (06:17→20:51)
[2019-06-11] MEDS: METHYLPREDNISOLONE SOD SUCC 40 MG/ML VIAL IV SCH ×2 (06:17→13:34)
[2019-06-11] MEDS: INSULIN LISPRO 100 UNITS/ML SUBCUT SCH ×4 (06:18→22:03)
[2019-06-11 08:00] VITALS: BP 149/82
[2019-06-11] MEDS ORDERED: SODIUM BICARBONATE 4% (2.4MEQ) 5ML VIAL IV ONE (08:36)
[2019-06-11] MEDS ORDERED: LIDOCAINE HCL 1% 20ML VIAL (Pyxis) INJ ONE (08:36)
[2019-06-11] MEDS: ASPIRIN 325MG EC TABLET PO SCH (08:40)
[2019-06-11] MEDS: FUROSEMIDE 40MG/4ML VIAL IVP SCH (08:40)
[2019-06-11] MEDS: SPIRONOLACTONE 25MG TABLET PO SCH (08:41)
[2019-06-11] MEDS: LISINOPRIL 10MG TABLET PO SCH ×2 (08:42→20:49)
[2019-06-11] MEDS: CARVEDILOL 12.5MG TABLET PO SCH ×2 (08:42→20:49)
[2019-06-11] MEDS: BRIMONIDINE 0.2% OPHTH DROPS 5ML EACHEYE SCH ×2 (08:44→17:28)
[2019-06-11] MEDS: TIMOLOL MALEATE 0.5% OPHTH DROPS 5ML EACHEYE SCH ×2 (08:44→17:28)
[2019-06-11] MEDS ORDERED: COMBIGAN OP SCH (09:00)
[2019-06-11] MEDS ORDERED: LISINOPRIL 10MG TABLET PO SCH (09:00)
[2019-06-11] MEDS: BUDESONIDE 0.5MG/2ML NEB HHN SCH ×2 (09:05→20:22)
[2019-06-11] MEDS ORDERED: CLOPIDOGREL 75MG TABLET PO SCH (11:30)
[2019-06-11] MEDS ORDERED: REGADENOSON 0.4 MG/5 ML IV SCH (11:45)
[2019-06-11 12:00] VITALS: BP 157/85
[2019-06-11] MEDS: NITROGLYCERIN OINT 1GM/INCH UDPKT TD SCH ×2 (13:36→21:30)
[2019-06-11] MEDS ORDERED: HYDROCODONE/ACETAMINOPHEN 10/325MG TABLET PO PRN (14:30)
[2019-06-11 16:00] VITALS: BP 139/68
[2019-06-11] MEDS ORDERED: BRIM10DR2 EACHEYE (16:54)
[2019-06-11] MEDS ORDERED: CARV6.2548 MT (16:55)
[2019-06-11] MEDS ORDERED: INSU100I24 SQ (16:56)
[2019-06-11] MEDS ORDERED: METF-816 MT (16:57)
[2019-06-11 17:07] LABS: HEMATOCRIT. 36.4 % (42.0-52.0); HEMOGLOBIN. 12.3 g/dL (14.0-18.0); MEAN CORPUSCULAR HEMOGLOBIN 33.2 pg (28.0-32.0); MEAN CORPUSCULAR VOLUME 98.7 fL (80.0-94.0); MEAN PLATELET VOLUME 9.5 fl (7.4-10.4); PLATELET 141 x1000/uL (130-400); RED BLOOD CELL COUNT 3.69 mill/uL (4.7-6.1); RED CELL DISTRIBUTION WIDTH 14.4 % (11.6-14.6)
[2019-06-11 17:18] LABS: CHLORIDE 106 mEq/L (98-107)
[2019-06-11] MEDS: DIGOXIN 125MCG TABLET PO SCH (17:28)
[2019-06-11 17:29] LABS: PLATELET ESTIMATE NORMAL
[2019-06-11 20:00] VITALS: BP 135/72
[2019-06-11] MEDS: ATORVASTATIN CALCIUM 40MG TABLET PO SCH (20:48)
[2019-06-11] MEDS: FAMOTIDINE 20MG TABLET PO SCH (20:48)
[2019-06-11] MEDS: ENOXAPARIN 40MG/0.4ML SYR SUBCUT SCH (20:50)
[2019-06-11] MEDS ORDERED: TRAVATAN OP SCH (21:00)
[2019-06-11] MEDS: LATANOPROST 0.005% OPHTH DROPS 2.5ML EACHEYE SCH (21:30)
[2019-06-11] MEDS: INSULIN GLARGINE UD 100 UNITS/ML SYR SUBCUT SCH (22:04)
[2019-06-12] VITALS (9 sets, daily range): BP systolic 95–183; BP diastolic 39–100
[2019-06-12] MEDS: IPRATROPIUM/ALBUTEROL 0.5-3(2.5)MG/3ML NEB HHN SCH ×2 (01:51→20:27)
[2019-06-12] MEDS: LORAZEPAM 2MG/ML CPJ IV PRN ×4 (02:38→12:16)
[2019-06-12] MEDS: NITROGLYCERIN OINT 1GM/INCH UDPKT TD SCH ×3 (06:10→22:15)
[2019-06-12] MEDS: SODIUM CHLORIDE 0.9% INJ 3ML FLUSH IVF SCH ×2 (06:10→22:12)
[2019-06-12] MEDS: INSULIN LISPRO 100 UNITS/ML SUBCUT SCH ×4 (06:11→21:00)
[2019-06-12] MEDS: BLOOD SUGAR DIAGNOSTIC STRIP TEST SCH ×4 (06:11→21:00)
[2019-06-12 07:03] LABS: CHLORIDE 107 mEq/L (98-107)
[2019-06-12 07:31] LABS: MEAN CORPUSCULAR HEMOGLOBIN 33.9 pg (28.0-32.0); MEAN CORPUSCULAR VOLUME 98.8 fL (80.0-94.0); MEAN PLATELET VOLUME 9.8 fl (7.4-10.4); PLATELET 140 x1000/uL (130-400); RED BLOOD CELL COUNT 3.24 mill/uL (4.7-6.1); RED CELL DISTRIBUTION WIDTH 14.2 % (11.6-14.6)
[2019-06-12 07:35] LABS: DIGOXIN 0.5 ng/mL (0.9-2.0)
[2019-06-12] MEDS: ASPIRIN 325MG EC TABLET PO SCH (09:00)
[2019-06-12] MEDS: MULTIVITAMINS,THER W-MINERALS TABLET PO SCH (09:00)
[2019-06-12] MEDS: FOLIC ACID 1MG TABLET PO SCH (09:00)
[2019-06-12] MEDS: SPIRONOLACTONE 25MG TABLET PO SCH (09:00)
[2019-06-12] MEDS: FUROSEMIDE 40MG/4ML VIAL IVP SCH (09:00)
[2019-06-12] MEDS: LISINOPRIL 10MG TABLET PO SCH ×2 (09:00→22:11)
[2019-06-12] MEDS: TIMOLOL MALEATE 0.5% OPHTH DROPS 5ML EACHEYE SCH ×2 (09:00→17:00)
[2019-06-12] MEDS: BRIMONIDINE 0.2% OPHTH DROPS 5ML EACHEYE SCH ×2 (09:00→17:00)
[2019-06-12] MEDS: CARVEDILOL 12.5MG TABLET PO SCH ×2 (09:00→22:12)
[2019-06-12 09:51] LABS: PLATELET ESTIMATE NORMAL
[2019-06-12] MEDS ORDERED: HYDRALAZINE 20MG/ML VIAL IV PRN (10:45)
[2019-06-12] MEDS: HALOPERIDOL LACTATE 5MG/ML VIAL IM PRN (14:11)
[2019-06-12] MEDS: DIGOXIN 125MCG TABLET PO SCH (18:00)
[2019-06-12] MEDS: BUDESONIDE 0.5MG/2ML NEB HHN SCH (20:27)
[2019-06-12] MEDS: INSULIN GLARGINE UD 100 UNITS/ML SYR SUBCUT SCH (22:00)
[2019-06-12] MEDS: ATORVASTATIN CALCIUM 40MG TABLET PO SCH (22:11)
[2019-06-12] MEDS: FAMOTIDINE 20MG TABLET PO SCH (22:11)
[2019-06-12] MEDS: LATANOPROST 0.005% OPHTH DROPS 2.5ML EACHEYE SCH (22:12)
[2019-06-12] MEDS: ENOXAPARIN 40MG/0.4ML SYR SUBCUT SCH (22:13)
[2019-06-12 22:33] LABS: T4 FREE 1.18 ng/dL (0.76-1.46)
[2019-06-13] VITALS (13 sets, daily range): BP systolic 97–140; BP diastolic 54–86
[2019-06-13 01:03] LABS: BG BASE EXCESS -2.7 mmol/L (-2.0-2.0); BG CARBOXYHEMOGLOBIN 0.8 % (0.5-1.5); BG DEOXYHEMOGLOBIN 3.8 % (0.0-5.0); BG FRACTION INSPIRED OXYGEN 28; BG HCO3 ACT 21.7 mmol/L (22.0-26.0); BG METHEMOGLOBIN 0.3 % (0.0-1.5); BG OXYGEN SATURATION 96.2 % (92.0-98.5); BG OXYHEMOGLOBIN 95.1 % (94.0-97.0); BG PCO2 36.2 mmHg (35.0-45.0); BG PH 7.395 (7.350-7.450); BG PO2 89.1 mmHg (75.0-100.0); BG SAMPLE SITE RIGHT RADIAL; BG TOTAL HEMOGLOBIN 12.7 g/dL (12.0-18.0); BG VENT MODE NASAL CANNULA
[2019-06-13] MEDS: IPRATROPIUM/ALBUTEROL 0.5-3(2.5)MG/3ML NEB HHN SCH ×4 (02:33→21:13)
[2019-06-13] MEDS: BLOOD SUGAR DIAGNOSTIC STRIP TEST SCH ×3 (06:08→21:41)
[2019-06-13] MEDS: NITROGLYCERIN OINT 1GM/INCH UDPKT TD SCH ×3 (06:08→23:00)
[2019-06-13] MEDS: SODIUM CHLORIDE 0.9% INJ 3ML FLUSH IVF SCH ×3 (06:08→21:44)
[2019-06-13 06:20] LABS: BASOPHILS % 0.1 % (0.0-2.0); HEMATOCRIT. 34.4 % (42.0-52.0); HEMOGLOBIN. 11.7 g/dL (14.0-18.0); LYMPHOCYTES % 7.8 % (20.0-50.0); MEAN CORPUSCULAR HEMOGLOBIN 33.5 pg (28.0-32.0); MEAN CORPUSCULAR VOLUME 98.4 fL (80.0-94.0); MEAN PLATELET VOLUME 9.3 fl (7.4-10.4); MONOCYTES % 10.9 % (2.0-8.0); NEUTROPHILS % 81.2 % (40.0-76.0); PLATELET 143 x1000/uL (130-400); RED CELL DISTRIBUTION WIDTH 14.3 % (11.6-14.6)
[2019-06-13 06:22] LABS: CHLORIDE 109 mEq/L (98-107)
[2019-06-13 06:29] LABS: LDL CHOLESTEROL 61 mg/dL (5-100)
[2019-06-13] MEDS: HALOPERIDOL LACTATE 5MG/ML VIAL IM PRN (06:41)
[2019-06-13] MEDS: INSULIN LISPRO 100 UNITS/ML SUBCUT SCH ×4 (07:20→21:00)
[2019-06-13 07:22] LABS: VITAMIN B12 SERUM 312 pg/mL (211-911)
[2019-06-13] MEDS: BUDESONIDE 0.5MG/2ML NEB HHN SCH ×2 (08:40→21:13)
[2019-06-13] MEDS: FUROSEMIDE 40MG/4ML VIAL IVP SCH (09:24)
[2019-06-13] MEDS: FOLIC ACID 1MG TABLET PO SCH (09:24)
[2019-06-13] MEDS: MULTIVITAMINS,THER W-MINERALS TABLET PO SCH (09:24)
[2019-06-13] MEDS: ASPIRIN 325MG EC TABLET PO SCH (09:24)
[2019-06-13] MEDS: SPIRONOLACTONE 25MG TABLET PO SCH (09:25)
[2019-06-13] MEDS: LISINOPRIL 10MG TABLET PO SCH ×2 (09:26→21:37)
[2019-06-13] MEDS: CARVEDILOL 12.5MG TABLET PO SCH ×2 (09:26→21:37)
[2019-06-13] MEDS: BRIMONIDINE 0.2% OPHTH DROPS 5ML EACHEYE SCH ×2 (09:26→18:25)
[2019-06-13] MEDS: TIMOLOL MALEATE 0.5% OPHTH DROPS 5ML EACHEYE SCH ×2 (09:27→18:25)
[2019-06-13] MEDS ORDERED: CYANOCOBALAMIN 1000MCG/ML VIAL IM NR (10:15)
[2019-06-13 10:46] LABS: CLARITY URINE CLEAR (CLEAR); COLOR URINE YELLOW (YELLOW); KETONES URINE 1+ (NEGATIVE); LEUKOCYTE ESTERASE URINE NEGATIVE (NEGATIVE); NITRITE URINE NEGATIVE (NEGATIVE); OCCULT BLOOD URINE NEGATIVE (NEGATIVE); PH URINE 5.5 (4.5-8.0); PROTEIN URINE 1+ (NEGATIVE); SPECIFIC GRAVITY URINE 1.017 (1.005-1.030)
[2019-06-13 12:48] LABS: *AMPHETAMINES SCREEN URINE NEGATIVE (NEGATIVE); *BARBITURATES SCREEN URINE NEGATIVE (NEGATIVE); *BENZODIAZEPINES SCREEN URINE NEGATIVE (NEGATIVE)
[2019-06-13 12:49] LABS: *COCAINE SCREEN URINE NEGATIVE (NEGATIVE); METHADONE URINE SCREEN NEGATIVE (NEGATIVE)
[2019-06-13 12:50] LABS: CANNABINOID URINE SCREEN NEGATIVE (NEGATIVE); OPIATES URINE SCREEN NEGATIVE (NEGATIVE); PHENCYCLIDINE URINE SCREEN NEGATIVE (NEGATIVE)
[2019-06-13] MEDS: DIGOXIN 125MCG TABLET PO SCH (18:24)
[2019-06-13] MEDS: ATORVASTATIN CALCIUM 40MG TABLET PO SCH (21:37)
[2019-06-13] MEDS: FAMOTIDINE 20MG TABLET PO SCH (21:37)
[2019-06-13] MEDS: INSULIN GLARGINE UD 100 UNITS/ML SYR SUBCUT SCH (21:44)
[2019-06-13] MEDS: ENOXAPARIN 40MG/0.4ML SYR SUBCUT SCH (21:47)
[2019-06-13] MEDS: LATANOPROST 0.005% OPHTH DROPS 2.5ML EACHEYE SCH (23:04)
[2019-06-14] VITALS (13 sets, daily range): BP systolic 101–166; BP diastolic 51–81
[2019-06-14] MEDS: IPRATROPIUM/ALBUTEROL 0.5-3(2.5)MG/3ML NEB HHN SCH ×4 (03:20→20:45)
[2019-06-14] MEDS: BLOOD SUGAR DIAGNOSTIC STRIP TEST SCH ×4 (05:39→20:06)
[2019-06-14] MEDS: NITROGLYCERIN OINT 1GM/INCH UDPKT TD SCH ×3 (05:46→22:05)
[2019-06-14] MEDS: SODIUM CHLORIDE 0.9% INJ 3ML FLUSH IVF SCH ×3 (05:46→22:04)
[2019-06-14 06:38] LABS: BASOPHILS % 0.3 % (0.0-2.0); EOSINOPHILS % 0.2 % (0.0-5.0); HEMATOCRIT. 38.1 % (42.0-52.0); HEMOGLOBIN. 12.8 g/dL (14.0-18.0); LYMPHOCYTES % 7.8 % (20.0-50.0); MEAN CORPUSCULAR HEMOGLOBIN 33.2 pg (28.0-32.0); MEAN CORPUSCULAR VOLUME 98.4 fL (80.0-94.0); MEAN PLATELET VOLUME 9.3 fl (7.4-10.4); MONOCYTES % 9.4 % (2.0-8.0); NEUTROPHILS % 82.3 % (40.0-76.0); PLATELET 151 x1000/uL (130-400); RED BLOOD CELL COUNT 3.87 mill/uL (4.7-6.1); RED CELL DISTRIBUTION WIDTH 13.8 % (11.6-14.6)
[2019-06-14 07:13] LABS: CHLORIDE 102 mEq/L (98-107)
[2019-06-14] MEDS: INSULIN LISPRO 100 UNITS/ML SUBCUT SCH ×4 (08:26→21:00)
[2019-06-14] MEDS: FOLIC ACID 1MG TABLET PO SCH (08:27)
[2019-06-14] MEDS: FUROSEMIDE 40MG/4ML VIAL IVP SCH (08:27)
[2019-06-14] MEDS: ASPIRIN 325MG EC TABLET PO SCH (08:27)
[2019-06-14] MEDS: MULTIVITAMINS,THER W-MINERALS TABLET PO SCH (08:27)
[2019-06-14] MEDS: CYANOCOBALAMIN 1000MCG/ML VIAL IM SCH (08:28)
[2019-06-14] MEDS: SPIRONOLACTONE 25MG TABLET PO SCH (08:28)
[2019-06-14] MEDS: CARVEDILOL 12.5MG TABLET PO SCH ×2 (08:29→22:00)
[2019-06-14] MEDS: LISINOPRIL 10MG TABLET PO SCH ×2 (08:29→21:00)
[2019-06-14] MEDS: TIMOLOL MALEATE 0.5% OPHTH DROPS 5ML EACHEYE SCH ×2 (09:52→17:57)
[2019-06-14] MEDS: BRIMONIDINE 0.2% OPHTH DROPS 5ML EACHEYE SCH ×2 (09:52→17:57)
[2019-06-14] MEDS: CLOPIDOGREL 75MG TABLET PO SCH (12:43)
[2019-06-14] MEDS: LORAZEPAM 2MG/ML CPJ IV PRN (17:29)
[2019-06-14] MEDS: LATANOPROST 0.005% OPHTH DROPS 2.5ML EACHEYE SCH (17:57)
[2019-06-14] MEDS: DIGOXIN 125MCG TABLET PO SCH (18:00)
[2019-06-14] MEDS: HALOPERIDOL LACTATE 5MG/ML VIAL IM PRN (18:30)
[2019-06-14] MEDS ORDERED: FUROSEMIDE 40MG/4ML VIAL IVP NR (20:45)
[2019-06-14] MEDS: QUETIAPINE FUMARATE 50MG TABLET PO SCH (21:00)
[2019-06-14] MEDS: FAMOTIDINE 20MG TABLET PO SCH (21:00)
[2019-06-14] MEDS: ATORVASTATIN CALCIUM 40MG TABLET PO SCH (21:00)
[2019-06-14] MEDS: ENOXAPARIN 40MG/0.4ML SYR SUBCUT SCH (22:04)
[2019-06-14] MEDS: INSULIN GLARGINE UD 100 UNITS/ML SYR SUBCUT SCH (22:08)
[2019-06-15] VITALS (14 sets, daily range): BP systolic 112–174; BP diastolic 59–115
[2019-06-15] MEDS: IPRATROPIUM/ALBUTEROL 0.5-3(2.5)MG/3ML NEB HHN SCH ×4 (01:31→21:20)
[2019-06-15] MEDS: NITROGLYCERIN OINT 1GM/INCH UDPKT TD SCH ×3 (05:56→21:16)
[2019-06-15] MEDS: SODIUM CHLORIDE 0.9% INJ 3ML FLUSH IVF SCH ×3 (05:57→21:42)
[2019-06-15] MEDS: BLOOD SUGAR DIAGNOSTIC STRIP TEST SCH ×4 (06:00→21:00)
[2019-06-15 07:49] LABS: BASOPHILS % 0.2 % (0.0-2.0); EOSINOPHILS % 0.2 % (0.0-5.0); HEMATOCRIT. 41.7 % (42.0-52.0); HEMOGLOBIN. 13.9 g/dL (14.0-18.0); LYMPHOCYTES % 7.8 % (20.0-50.0); MEAN CORPUSCULAR HEMOGLOBIN 32.3 pg (28.0-32.0); MEAN CORPUSCULAR VOLUME 96.7 fL (80.0-94.0); MEAN PLATELET VOLUME 9.3 fl (7.4-10.4); MONOCYTES % 10.2 % (2.0-8.0); NEUTROPHILS % 81.6 % (40.0-76.0); PLATELET 178 x1000/uL (130-400); RED BLOOD CELL COUNT 4.31 mill/uL (4.7-6.1); RED CELL DISTRIBUTION WIDTH 13.8 % (11.6-14.6)
[2019-06-15] MEDS: CLOPIDOGREL 75MG TABLET PO SCH (08:19)
[2019-06-15] MEDS: FOLIC ACID 1MG TABLET PO SCH (08:20)
[2019-06-15] MEDS: LISINOPRIL 10MG TABLET PO SCH ×2 (08:20→21:15)
[2019-06-15] MEDS: ASPIRIN 325MG EC TABLET PO SCH (08:20)
[2019-06-15] MEDS: CARVEDILOL 12.5MG TABLET PO SCH ×2 (08:20→21:15)
[2019-06-15] MEDS: FUROSEMIDE 40MG TABLET PO SCH (08:20)
[2019-06-15] MEDS: SPIRONOLACTONE 25MG TABLET PO SCH (08:20)
[2019-06-15] MEDS: TIMOLOL MALEATE 0.5% OPHTH DROPS 5ML EACHEYE SCH ×2 (08:21→16:28)
[2019-06-15] MEDS: BRIMONIDINE 0.2% OPHTH DROPS 5ML EACHEYE SCH ×2 (08:21→16:27)
[2019-06-15] MEDS: CYANOCOBALAMIN 1000MCG/ML VIAL IM SCH (08:22)
[2019-06-15] MEDS: INSULIN LISPRO 100 UNITS/ML SUBCUT SCH ×4 (08:35→21:41)
[2019-06-15 08:42] LABS: CHLORIDE 102 mEq/L (98-107)
[2019-06-15] MEDS: MULTIVITAMINS,THER W-MINERALS TABLET PO SCH (08:54)
[2019-06-15] MEDS: LORAZEPAM 2MG/ML CPJ IV PRN (10:56)
[2019-06-15] MEDS ORDERED: POTASSIUM CHLORIDE 20MEQ TABLET SR PO NR (11:00)
[2019-06-15] MEDS: DIGOXIN 125MCG TABLET PO SCH (17:19)
[2019-06-15] MEDS: ATORVASTATIN CALCIUM 40MG TABLET PO SCH (21:15)
[2019-06-15] MEDS: FAMOTIDINE 20MG TABLET PO SCH (21:15)
[2019-06-15] MEDS: ENOXAPARIN 40MG/0.4ML SYR SUBCUT SCH (21:17)
[2019-06-15] MEDS: QUETIAPINE FUMARATE 50MG TABLET PO SCH (21:40)
[2019-06-15] MEDS: INSULIN GLARGINE UD 100 UNITS/ML SYR SUBCUT SCH (21:41)
[2019-06-15] MEDS: LATANOPROST 0.005% OPHTH DROPS 2.5ML EACHEYE SCH (21:43)
[2019-06-16] VITALS (13 sets, daily range): BP systolic 100–159; BP diastolic 54–85
[2019-06-16] MEDS: IPRATROPIUM/ALBUTEROL 0.5-3(2.5)MG/3ML NEB HHN SCH ×4 (02:00→21:50)
[2019-06-16] MEDS: NITROGLYCERIN OINT 1GM/INCH UDPKT TD SCH ×3 (06:44→22:01)
[2019-06-16] MEDS: SODIUM CHLORIDE 0.9% INJ 3ML FLUSH IVF SCH ×3 (06:44→22:00)
[2019-06-16] MEDS: BLOOD SUGAR DIAGNOSTIC STRIP TEST SCH ×4 (06:45→21:00)
[2019-06-16] MEDS: INSULIN LISPRO 100 UNITS/ML SUBCUT SCH ×4 (08:37→22:03)
[2019-06-16] MEDS: MULTIVITAMINS,THER W-MINERALS TABLET PO SCH ×2 (09:00→09:25)
[2019-06-16] MEDS: LISINOPRIL 10MG TABLET PO SCH ×2 (09:00→22:01)
[2019-06-16] MEDS: CYANOCOBALAMIN 1000MCG/ML VIAL IM SCH ×2 (09:00→09:16)
[2019-06-16] MEDS: FOLIC ACID 1MG TABLET PO SCH ×2 (09:00→09:25)
[2019-06-16] MEDS: CLOPIDOGREL 75MG TABLET PO SCH ×2 (09:00→09:25)
[2019-06-16] MEDS: SPIRONOLACTONE 25MG TABLET PO SCH ×2 (09:00→09:25)
[2019-06-16] MEDS: ASPIRIN 81MG EC TABLET PO SCH ×2 (09:00→09:25)
[2019-06-16] MEDS: OLANZAPINE 5MG TABLET PO SCH ×2 (09:00→09:38)
[2019-06-16] MEDS: TIMOLOL MALEATE 0.5% OPHTH DROPS 5ML EACHEYE SCH ×2 (09:16→18:08)
[2019-06-16] MEDS: FUROSEMIDE 40MG TABLET PO SCH (09:26)
[2019-06-16] MEDS: CARVEDILOL 12.5MG TABLET PO SCH ×2 (09:26→21:00)
[2019-06-16] MEDS: BRIMONIDINE 0.2% OPHTH DROPS 5ML EACHEYE SCH ×2 (09:36→18:08)
[2019-06-16] MEDS ORDERED: POTASSIUM CHLORIDE 20MEQ TABLET SR PO NR (10:00)
[2019-06-16] MEDS: DIGOXIN 125MCG TABLET PO SCH (18:09)
[2019-06-16] MEDS: LORAZEPAM 2MG/ML CPJ IV PRN (19:47)
[2019-06-16] MEDS: ATORVASTATIN CALCIUM 40MG TABLET PO SCH (21:00)
[2019-06-16] MEDS: FAMOTIDINE 20MG TABLET PO SCH (21:00)
[2019-06-16] MEDS: ENOXAPARIN 40MG/0.4ML SYR SUBCUT SCH (22:00)
[2019-06-16] MEDS: QUETIAPINE FUMARATE 50MG TABLET PO SCH (22:00)
[2019-06-16] MEDS: LATANOPROST 0.005% OPHTH DROPS 2.5ML EACHEYE SCH (22:02)
[2019-06-16] MEDS: INSULIN GLARGINE UD 100 UNITS/ML SYR SUBCUT SCH (22:03)
[2019-06-26] MEDS ORDERED: CYANOCOBALAMIN 1000MCG/ML VIAL IM SCH (09:00)
== END 2019-06-16 23:19 | DRG 291 ==
LOC: ER 16:38 → 8WST 17:52 → EDBEDREQ 17:58 → EDBEDREQTM 17:59 → ENRESERV 20:14 → 3WST 06-13 00:01
PROVIDERS: ADMIT Internal Medicine; ATTEND Internal Medicine
DX: I11.0 Hypertensive heart disease with heart failure (principal); I63.81 Other cerebral infarction due to occlusion or stenosis of small artery; J96.00 Acute respiratory failure, unspecified whether with hypoxia or hypercapnia; G92 Toxic encephalopathy; J44.1 Chronic obstructive pulmonary disease with (acute) exacerbation; R18.8 Other ascites; F23 Brief psychotic disorder; G93.1 Anoxic brain damage, not elsewhere classified; I50.43 Acute on chronic combined systolic (congestive) and diastolic (congestive) heart failure; I25.5 Ischemic cardiomyopathy; I48.0 Paroxysmal atrial fibrillation; I27.20 Pulmonary hypertension, unspecified; B19.20 Unspecified viral hepatitis C without hepatic coma; I25.10 Atherosclerotic heart disease of native coronary artery without angina pectoris; D53.9 Nutritional anemia, unspecified; D72.829 Elevated white blood cell count, unspecified; E11.9 Type 2 diabetes mellitus without complications; N40.0 Benign prostatic hyperplasia without lower urinary tract symptoms; L89.219 Pressure ulcer of right hip, unspecified stage; S61.512A Laceration without foreign body of left wrist, initial encounter; X58.XXXA Exposure to other specified factors, initial encounter; R26.9 Unspecified abnormalities of gait and mobility; E53.8 Deficiency of other specified B group vitamins; E78.5 Hyperlipidemia, unspecified; F41.9 Anxiety disorder, unspecified; I25.2 Old myocardial infarction; Z78.1 Physical restraint status; Z82.3 Family history of stroke; Z82.49 Family history of ischemic heart disease and other diseases of the circulatory system; Z95.810 Presence of automatic (implantable) cardiac defibrillator; Z95.1 Presence of aortocoronary bypass graft; Z79.02 Long term (current) use of antithrombotics/antiplatelets; Z79.4 Long term (current) use of insulin; Z87.891 Personal history of nicotine dependence; Z95.5 Presence of coronary angioplasty implant and graft; Z99.81 Dependence on supplemental oxygen; Z79.84 Long term (current) use of oral hypoglycemic drugs; Y93.89 Activity, other specified; Y92.89 Other specified places as the place of occurrence of the external cause; Y99.8 Other external cause status
CPT/HCPCS: 36415; 36600; 71045; 80048; 80162; 80305; 81003; 82140; 82375; 82465; 82607; 82805; 82962; 83721; 83880; 84134; 84439; 84443; 84484; 92523; 93005; 93306; 94640; 95816; 96374; 96375; 97162; 97166; 99285; J0360; J1630; J1650; J1815; J1940; J2060; J2920; J2930; J3420; J3490; J7620; J7626; A4315

== ENCOUNTER 2019-07-09 03:40 | Inpatient (IN) | payer MEDICARE, MEDICAID ==
[~2019-07-09] VITALS: Ht 180.3 cm; Wt 65.3 kg
[~2019-07-09 03:40] MED LIST changes: +BRIM10DR2 EACHEYE; -BRIN8DRO BOTHEYE; -CARV12.545 PO; +CARV6.2548 MT; +INSU100I24 SQ; -INSU100I28 SQ; +METF-816 MT; -METF500T3 PO
[2019-07-09] MEDS ORDERED: MORPHINE SULFATE 4 MG/ML CPJ (NOT FOR IM USE) IV STA (10:19)
[2019-07-09] MEDS ORDERED: ONDANSETRON HCL 4MG/2ML INJ IV STA (10:19)
[2019-07-09] MEDS ORDERED: SODIUM CHLORIDE 0.9% 1,000 ML IV ONE (10:19)
[2019-07-09] MEDS ORDERED: TETANUS, DIPHTHERIA, PERTUSSIS VAC/PF 0.5ML (>7YR OLD) IM ONE (10:30)
[2019-07-09 10:45] LABS: CLARITY URINE CLOUDY (CLEAR); COLOR URINE YELLOW (YELLOW); KETONES URINE NEGATIVE (NEGATIVE); LEUKOCYTE ESTERASE URINE 1+ (NEGATIVE); NITRITE URINE POSITIVE (NEGATIVE); OCCULT BLOOD URINE 2+ (NEGATIVE); PH URINE 6.5 (4.5-8.0); PROTEIN URINE TRACE (NEGATIVE); SPECIFIC GRAVITY URINE 1.018 (1.005-1.030); UROBILINOGEN URINE 0.2 E.U./dL (0.2-1.0)
[2019-07-09 10:51] LABS: CHLORIDE 114 mEq/L (98-107)
[2019-07-09 10:55] LABS: BASOPHILS % 0.5 % (0.0-2.0); EOSINOPHILS % 1.1 % (0.0-5.0); HEMATOCRIT. 37.1 % (42.0-52.0); HEMOGLOBIN. 12.4 g/dL (14.0-18.0); LYMPHOCYTES % 13.9 % (20.0-50.0); MEAN CORPUSCULAR HEMOGLOBIN 32.6 pg (28.0-32.0); MEAN CORPUSCULAR VOLUME 97.8 fL (80.0-94.0); MONOCYTES % 9.1 % (2.0-8.0); NEUTROPHILS % 75.4 % (40.0-76.0); PLATELET 165 x1000/uL (130-400); RED BLOOD CELL COUNT 3.79 mill/uL (4.7-6.1); RED CELL DISTRIBUTION WIDTH 15.1 % (11.6-14.6)
[2019-07-09 10:56] LABS: INR 1.1; PARTIAL THROMBOPLASTIN TIME 25.9 sec (23.4-31.0); PROTHROMBIN TIME 11.5 sec (9.6-11.0)
[2019-07-09] MEDS ORDERED: LEVOFLOXACIN 750MG PREMIX 150 ML IV ONE (11:45)
[2019-07-09 15:13] VITALS: BP 138/78
[2019-07-09] MEDS ORDERED: IPRATROPIUM/ALBUTEROL 0.5-3(2.5)MG/3ML NEB HHN PRN (15:30)
[2019-07-09 16:20] VITALS: BP 138/78
[2019-07-09] MEDS ORDERED: METHYLPREDNISOLONE SOD SUCC 125 MG/2 ML VIAL IV NR (17:00)
[2019-07-09] MEDS ORDERED: DEXTROSE 50% WATER 50ML SYRINGE IV PRN (18:45)
[2019-07-09 20:31] VITALS: BP 144/71
[2019-07-09] MEDS: BLOOD SUGAR DIAGNOSTIC STRIP TEST SCH (21:00)
[2019-07-09] MEDS: INSULIN LISPRO 100 UNITS/ML SUBCUT SCH (21:00)
[2019-07-09] MEDS: BUDESONIDE 0.5MG/2ML NEB HHN SCH (21:12)
[2019-07-09] MEDS: IPRATROPIUM/ALBUTEROL 0.5-3(2.5)MG/3ML NEB HHN SCH (21:13)
[2019-07-09 23:57] VITALS: BP 128/83
[2019-07-10] MEDS: IPRATROPIUM/ALBUTEROL 0.5-3(2.5)MG/3ML NEB HHN SCH ×4 (01:48→22:06)
[2019-07-10] MEDS: BLOOD SUGAR DIAGNOSTIC STRIP TEST SCH ×4 (07:20→21:34)
[2019-07-10] MEDS: INSULIN LISPRO 100 UNITS/ML SUBCUT SCH ×4 (07:50→21:00)
[2019-07-10 08:00] VITALS: BP 122/69
[2019-07-10] MEDS: BUDESONIDE 0.5MG/2ML NEB HHN SCH ×2 (08:00→22:07)
[2019-07-10 09:22] LABS: INR 1.1; PROTHROMBIN TIME 11.5 sec (9.6-11.0)
[2019-07-10] MEDS: FUROSEMIDE 40MG/4ML VIAL IVP SCH (10:49)
[2019-07-10 12:00] VITALS: BP 161/69
[2019-07-10] MEDS: LEVOFLOXACIN 500MG PREMIX 100 ML IV SCH (13:32)
[2019-07-10 16:00] VITALS: BP 145/66
[2019-07-11 00:24] VITALS: BP 138/71
[2019-07-11 04:00] VITALS: BP 162/68
[2019-07-11] MEDS: IPRATROPIUM/ALBUTEROL 0.5-3(2.5)MG/3ML NEB HHN SCH ×3 (04:42→14:44)
[2019-07-11] MEDS: BLOOD SUGAR DIAGNOSTIC STRIP TEST SCH ×4 (06:51→21:00)
[2019-07-11 08:00] VITALS: BP 146/80
[2019-07-11] MEDS: INSULIN LISPRO 100 UNITS/ML SUBCUT SCH ×4 (09:25→21:55)
[2019-07-11] MEDS: FUROSEMIDE 40MG/4ML VIAL IVP SCH (09:29)
[2019-07-11] MEDS: FOLIC ACID 1MG TABLET PO SCH (09:30)
[2019-07-11] MEDS: BUDESONIDE 0.5MG/2ML NEB HHN SCH (09:50)
[2019-07-11] MEDS: LEVOFLOXACIN 500MG PREMIX 100 ML IV SCH (10:32)
[2019-07-11 12:15] VITALS: BP 132/72
[2019-07-11 16:03] LABS: INR 1.1; PROTHROMBIN TIME 11.7 sec (9.6-11.0)
[2019-07-11 16:25] VITALS: BP 136/78
[2019-07-11 20:00] VITALS: BP_SYST 130; BP_SYST 140; BP_DIAS 56; BP_DIAS 66
[2019-07-12] VITALS: BP 123/73
[2019-07-12] MEDS: IPRATROPIUM/ALBUTEROL 0.5-3(2.5)MG/3ML NEB HHN SCH ×4 (02:30→15:16)
[2019-07-12 04:00] VITALS: BP_SYST 126; BP_DIAS 64; BP_DIAS 72
[2019-07-12] MEDS: BLOOD SUGAR DIAGNOSTIC STRIP TEST SCH ×3 (05:42→18:09)
[2019-07-12] MEDS: INSULIN LISPRO 100 UNITS/ML SUBCUT SCH ×3 (05:55→17:50)
[2019-07-12 08:00] VITALS: BP_SYST 120; BP_SYST 156; BP_DIAS 63; BP_DIAS 76
[2019-07-12] MEDS: FOLIC ACID 1MG TABLET PO SCH (09:52)
[2019-07-12] MEDS: FUROSEMIDE 40MG/4ML VIAL IVP SCH (09:52)
[2019-07-12] MEDS: BUDESONIDE 0.5MG/2ML NEB HHN SCH (10:15)
[2019-07-12 12:00] VITALS: BP 128/63
[2019-07-12] MEDS: LEVOFLOXACIN 500MG PREMIX 100 ML IV SCH (13:01)
[2019-07-12 17:37] VITALS: BP 128/63
[2019-07-12 19:47] VITALS: BP 116/72
[2019-07-13] MEDS ORDERED: LEVOFLOXACIN 500MG TABLET PO SCH (11:00)
== END 2019-07-12 20:22 | DRG 871 ==
LOC: ER 03:40 → 6WST 12:00 → EDBEDREQ 12:08 → ENRESERV 14:39
PROVIDERS: ADMIT Internal Medicine; ATTEND Internal Medicine
DX: A41.59 Other Gram-negative sepsis (principal); J96.00 Acute respiratory failure, unspecified whether with hypoxia or hypercapnia; G93.41 Metabolic encephalopathy; I50.42 Chronic combined systolic (congestive) and diastolic (congestive) heart failure; J44.1 Chronic obstructive pulmonary disease with (acute) exacerbation; N39.0 Urinary tract infection, site not specified; J98.11 Atelectasis; E11.9 Type 2 diabetes mellitus without complications; I11.0 Hypertensive heart disease with heart failure; I48.0 Paroxysmal atrial fibrillation; B96.1 Klebsiella pneumoniae [K. pneumoniae] as the cause of diseases classified elsewhere; D64.9 Anemia, unspecified; F41.9 Anxiety disorder, unspecified; S61.411A Laceration without foreign body of right hand, initial encounter; W19.XXXA Unspecified fall, initial encounter; L89.109 Pressure ulcer of unspecified part of back, unspecified stage; I25.10 Atherosclerotic heart disease of native coronary artery without angina pectoris; E78.00 Pure hypercholesterolemia, unspecified; B19.20 Unspecified viral hepatitis C without hepatic coma; E78.5 Hyperlipidemia, unspecified; I25.5 Ischemic cardiomyopathy; Z87.891 Personal history of nicotine dependence; Z95.1 Presence of aortocoronary bypass graft; Z95.810 Presence of automatic (implantable) cardiac defibrillator; Z99.81 Dependence on supplemental oxygen; Z85.46 Personal history of malignant neoplasm of prostate; Z79.899 Other long term (current) drug therapy; Z79.84 Long term (current) use of oral hypoglycemic drugs; Z79.4 Long term (current) use of insulin; Y93.89 Activity, other specified; Y92.89 Other specified places as the place of occurrence of the external cause; Y99.8 Other external cause status
CPT/HCPCS: 36415; 71045; 73130; 73521; 81003; 82962; 83605; 83880; 84134; 84145; 84484; 86850; 86900; 87077; 87186; 90471; 90715; 93005; 96365; 99285; J1815; J1940; J1956; J2930; J7030; J7040; J7620; J7626